=== PATIENT | male | born 1955 | race African-American/Black ===

== ENCOUNTER 2020-08-24 21:28 | Emergency (ER) | payer MEDICARE, SELFPAY ==
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
[2020-08-24 21:54] VITALS: BP 157/95; PULSE 94; RESP 16; TEMP 36.4; O2SAT 100
[2020-08-24 23:03] VITALS: BP 222/122; PULSE 79; RESP 18; TEMP 36.7; O2SAT 100
--- NOTE | 2020-08-24 23:27 | PC.NURSE ---
Pt refusing gown and lying in bed due to pain with movement. Pt in wheelchair at bedside. Pt has elevated blood pressure after manual auscultation, ERP aware.
--- NOTE | 2020-08-24 23:44 | ED.BACK ---
HPI - Back Pain/Injury General Chief Complaint: Back Pain/Injury Stated Complaint: low back pain, flank pain Time Seen by Provider: 08/24/20 23:23 Source: patient Mode of arrival: ambulatory Limitations: no limitations History of Present Illness HPI Narrative: Patient is a 65-year-old male complaining of left lower back pain, dull, 10 out of 10, nonradiating, worse with movement, started 2 days ago. Patient states that he has a history of back pain but it is never this worse. Patient denies any weakness, numbness, incontinence, fever or chills. Patient denies any urinary symptoms. Patient denies any chest pain, shortness of breath or abdominal pain. MD elicited complaint: back pain Related Data Home Medications Medication Instructions Recorded Confirmed amlodipine 10 mg PO DAILY 01/21/19 atorvastatin 40 mg PO DAILY 01/21/19 insulin glargine [Basaglar KwikPen 44 unit SUBCUT HS 01/21/19 U-100 Insulin] lisinopril 40 mg PO DAILY 01/21/19 metformin 1,000 mg PO BID 01/21/19 Allergies Allergy/AdvReac Type Severity Reaction Status Date / Time shrimp Allergy Rash Verified 08/24/20 23:15 Review of Systems Review of Systems: All systems reviewed & are unremarkable except as noted in HPI and below Constitutional: Constitutional: Denies body ache(s), Denies chills, Denies excessive sweating, Denies fatigue, Denies fever(s), Denies headache(s), Denies lethargy, Denies malaise, Denies weakness and Denies weight loss Eyes: Eyes: Denies blurry vision, Denies change in vision and Denies loss of vision ENT: Denies dizziness, Denies ear discharge, Denies headache(s), Denies lip swelling, Denies epistaxis, Denies nasal congestion, Denies neck pain, Denies throat swelling and Denies tongue swelling Cardiovascular: Cardiovascular: Denies chest pain, Denies chest pain at rest, Denies chest pain with activity, Denies diaphoresis, Denies rapid heart rate, Denies edema, Denies irregular heart rhythm, Denies lightheadedness, Denies palpitations, Denies dyspnea and Denies dyspnea on exertion Respiratory: Respiratory: Denies chest congestion, Denies cough, Denies hemoptysis, Denies dyspnea and Denies dyspnea on exertion Gastrointestinal: Gastrointestinal: Denies abdominal pain, Denies melena, Denies hematochezia, Denies diarrhea, Denies nausea, Denies vomiting and Denies hematemesis Musculoskeletal: Musculoskeletal: Denies abnormal gait, Denies deformity, Denies joint swelling, Denies limited range of motion, Denies neck pain and Denies numbness Neurologic: Denies Abnormal speech present, Denies abnormal gait, Denies confusion, Denies dizziness, Denies headache(s), Denies focal weakness, Denies loss of vision, Denies numbness, Denies Other visual disturbances, Denies Sensory deficit (Neuro) and Denies weakness Psychiatric: Psychiatric: Denies confusion, Denies depression, Denies auditory hallucinations, Denies homicidal ideation and Denies suicidal ideation Endocrine: Endocrine: Denies cold intolerance, Denies excessive sweating, Denies fatigue, Denies heat intolerance and Denies palpitations Hematologic/Lymphatic: Hematologic/Lymphatic: Denies easy bleeding and Denies easy bruising Allergic/Immunologic: Allergic/Immunologic: Denies lip swelling, Denies throat swelling and Denies tongue swelling PMFSH Past Medical History Medical History DM (diabetes mellitus) Hypercholesteremia Hypertension Surgical History Surgical History History of cholecystectomy History of tonsillectomy Social History Social History Smoking status: Current every day smoker Gender identity (if verbalized by the patient): Male Exam Const: General: cooperative, healthy appearing, comfortable, no acute distress, well developed, alert and awake; No confusion Orientation/consciousness: orient
[2020-08-24 23:57] LABS: Basophils Percent Auto 0.2 % (0.2-1.2); Eosinophils Absolute Auto 0.3 K/mm3 (0-0.3); Eosinophils Percent Auto 3.6 % (0-4.4); Hematocrit 42.4 % (42.0-52.0); Immature Granulocyte Absolute 0.03 K/mm3 (0.00-0.031); Immature Granulocyte Percent A 0.3 % (0-0.5); Lymphocytes Absolute Auto 2.57 K/mm3 (0.9-3.2); Lymphocytes Percent Auto 29.1 % (18.3-44.2); Mean Corpuscular Hemoglobin 29.9 pg (26-34); Mean Corpuscular Volume 90.4 fl (80-100); Mean Platelet Volume 9.4 fl (7.4-10.4); Monocytes Absolute Auto 0.5 K/mm3 (0.1-0.6); Neutrophils Absolute Auto 5.4 K/mm3 (1.3-6.7); Neutrophils Percent Auto 60.8 % (45.5-73.1); Platelet Count Result 272 k/mm3 (150-375); Red Blood Count 4.69 M/mm3 (4.6-6.20); Red Cell Distribution Width 12.6 % (11.5-14.5); White Blood Count 8.8 K/mm3 (4.5-10.0)
[2020-08-25] MEDS: diazePAM INJ (*CRX) 10 MG/2 ML SYRINGE 5 MG IV PUSH (00:04)
[2020-08-25 00:06] LABS: Alanine Aminotransferase 22 U/L (4-50); Alkaline Phosphatase 105 U/L (38-126); Anion Gap 7 mmol/L (8-16); Aspartate Amino Transferase 29 U/L (17-59); Bilirubin,Total 0.5 mg/dL (0.2-1.3); Blood Urea Nitrogen 18 mg/dL (9-20); Calcium 9.2 mg/dL (8.4-10.2); Carbon Dioxide 28 mmol/L (22-30); Chloride 108 mmol/L (98-107); Estimated CRCL calculation 51 ml/min; Estimated Glomerular Filt Rate 57; Glucose 192 mg/dL (75-110); Lipase 798 U/L (23-300); Potassium 4.1 mmol/L (3.4-5.0); Sodium 143 mmol/L (137-145)
--- NOTE | 2020-08-25 00:12 | PC.NURSE ---
Pt to imaging at this time.
[2020-08-25 00:38] VITALS: BP 193/98; PULSE 82; RESP 16; O2SAT 98
--- NOTE | 2020-08-25 01:36 | PC.NURSE ---
Pt requesting pain medication, ERP aware.
[2020-08-25] MEDS: KETOROLAC 15 MG/ML VIAL (*BKC) IV PUSH (02:13)
[2020-08-25] MEDS: HYDROmorphone HCL INJ (*CRX) 1 MG/ML SYR 0.5 MG IV PUSH ×2 (02:16)
[2020-08-25 02:25] VITALS: BP 208/101; PULSE 85; RESP 16; O2SAT 99
== END 2020-08-25 02:30 | disposition home or self-care (01) ==
PROVIDERS: Emergency Provider Emergency Medicine
DX: M54.5 Low back pain (principal); Z79.4 Long term (current) use of insulin; E11.9 Type 2 diabetes mellitus without complications; E78.00 Pure hypercholesterolemia, unspecified; I10 Essential (primary) hypertension; F17.200 Nicotine dependence, unspecified, uncomplicated
CPT/HCPCS: 36415; 74176; 80053; 83690; 85025; 96374; 96375; 96376; 99284; J1100; J1170; J1885; J3360

== ENCOUNTER 2020-10-11 08:50 | Outpatient (CLI) | payer MEDICARE, SELFPAY ==
--- NOTE | ~2020-10-11 | US_ITS ---
EXAMINATION: US aorta [facility] DATE: 10/11/2020 09:46 INDICATION: Abdominal aortic aneurysm screening. TECHNIQUE: Grayscale, color Doppler, and pulsed Doppler images of the aorta and common iliac arteries were obtained. COMPARISON: CT abdomen and pelvis 08/25/2020 FINDINGS: The aorta is normal in caliber. The right common iliac artery is normal in caliber. The left common i liac artery is normal in caliber. IMPRESSION: 1. No abdominal aortic aneurysm. Reviewed, dictated and finalized at location A.
== END 2020-10-11 08:51 | disposition home or self-care (01) ==
DX: Z13.6 Encounter for screening for cardiovascular disorders (principal)
CPT/HCPCS: 76706

== ENCOUNTER 2022-01-06 08:04 | Outpatient (CLI) | payer MEDICARE, SELFPAY ==
[2022-01-06 19:36] LABS: Alanine Aminotransferase 23 U/L (6-50); Albumin Level 4.1 g/dL (3.5-5.1); Alkaline Phosphatase 93 U/L (38-126); Anion Gap 12 mmol/L (8-16); Aspartate Amino Transferase 29 U/L (17-59); Bilirubin,Total 0.3 mg/dL (0.2-1.3); Blood Urea Nitrogen 36 mg/dL (9-20); Calcium 8.3 mg/dL (8.4-10.2); Carbon Dioxide 22 mmol/L (22-30); Chloride 110 mmol/L (98-107); Cholesterol 159 mg/dL (0-200); Estimated Glomerular Filt Rate > 60; Glucose 139 mg/dL (65-110); HDL Direct 40 mg/dL; Potassium 4.5 mmol/L (3.4-5.0); Sodium 144 mmol/L (137-145); Triglycerides 65 mg/dL (<150)
[2022-01-06 19:42] LABS: LDL Cholesterol Direct 81 mg/dL
[2022-01-06 19:57] LABS: Creatinine Urine 92.5 mg/dL
[2022-01-06 20:18] LABS: Hemoglobin A1C 7.1 % (<5.7)
[2022-01-06 20:39] LABS: MALB Creatinine Ratio 611.8 mg/g (0-30); Microalbumin Urine Random 565.9 mg/L (0-16.7)
== END 2022-01-06 08:05 | disposition home or self-care (01) ==
LOC: ANHGOSHLAB 08:13
PROVIDERS: PCP Emergency Medicine; Visit Provider Emergency Medicine
DX: E11.9 Type 2 diabetes mellitus without complications (principal)
CPT/HCPCS: 36415; 80053; 80061; 82043; 83036; 84443

== ENCOUNTER 2022-05-16 09:00 | Outpatient (NON) | payer MEDICARE, SELFPAY | END 2022-05-16 09:01 | disposition home or self-care (01) | PROVIDERS: PCP Emergency Medicine; Visit Provider Internal Medicine Gastroenterology | DX: Z12.11 Encounter for screening for malignant neoplasm of colon (principal); K63.5 Polyp of colon | CPT/HCPCS: 88305 ==

== ENCOUNTER 2022-05-16 11:12 | Day surgery (SDC) | payer MEDICARE, SELFPAY ==
[2022-04-27 11:46] VITALS: BMI 35.4
[2022-05-02 14:13] VITALS: BMI 30.7
[2022-05-16 11:45] VITALS: BP 157/101; PULSE 92; RESP 20; TEMP 36.7; O2SAT 100
[2022-05-16] MEDS: LACTATED RINGERS 1,000 ML 30 ML IV CONT (12:20)
[2022-05-16 12:32] LABS: Glucose Point of Care 200 mg/dl (65-105)
--- NOTE | 2022-05-16 12:40 | P.PNAN_ITS ---
Anes - Initial Pre Proc Eval Procedure: Operation Date: 05/16/22 13:00 Proposed Procedures p Screening Colonoscopy - [place] MD Date/Time: 05/16/22 12:40 Surgeon: Lenin [place] MD Pre Op Diagnosis: Neoplasm Screening Patient Data Age: 67 Gender: M Height: 1.71 m Weight: 104.2 kg Allergies Allergy/AdvReac Type Severity Reaction Status Date / Time shrimp Allergy Rash Verified 05/16/22 12:32 Home Medications Medication Instructions Recorded Confirmed Type amlodipine 10 mg tablet 10 mg PO DAILY 01/21/19 05/16/22 History metformin 750 mg tablet,extended 1,500 mg PO DAILY #180 tabs 02/09/22 05/16/22 Rx release 24 hr lisinopril 20 2 tablet PO DAILY #180 tabs 04/03/22 05/16/22 Rx mg-hydrochlorothiazide 12.5 mg tablet sodium,potassium,mag sulfates 17.5 See Rx Instructions PO .COMPLEX 04/27/22 05/16/22 Rx gram-3.13 gram-1.6 gram oral soln #354 mL (Suprep Bowel Prep Kit) Laboratory Tests 05/16/22 12:20 POC Capillary Glucose 200 mg/dl H mg/dl (65-105) Patient hx anesthesia problems: none Family hx anesthesia problems: none Results Review: All pre-operative results and documents have been reviewed as part of the pre- operative evaluation. [facility] Past Medical History Medical History DM (diabetes mellitus) Hypercholesteremia Hypertension Surgical History Surgical History History of cholecystectomy History of tonsillectomy Social History Social History Social History: Caffeine-coffee Smoking packs per day: 0.5 Smoking cigarettes per day: 10.0 Years smoked: 42 Smoking pack-years: 21.00 Smoking status: Current every day smoker Tobacco type: cigarettes Alcohol intake: current Alcohol use details: rarely Substance use: never Substance use type: does not use Living arrangements: with family Gender identity (if verbalized by the patient): Male Spiritual care concerns: No Anes - Eval Final PreProcedure Day of Procedure 05/16/22 12:40 Patient weight: obese Heart: regular rate and rhythm Lungs: clear to auscultation Airway: Mallampati scale class II Neurological: alert and oriented Last oral intake: >/= 8 hours ASA classification: III Emergent: no Anesthetic plan: proceed Anesthesia type and monitoring: general GIVS and standard monitoring Results Review: All pre-operative results and documents have been reviewed as part of the pre- operative evaluation. Informed Consent: The patient's anesthetic plan and its attendant risks and benefits were discussed with the patient/family/POA. Questions were solicited and answers provided to the satisfaction of the patient/family/POA.
--- NOTE | 2022-05-16 13:40 | P.HP_ITS ---
History of Present Illness History of Present Illness Consent: Risks, benefits, and alternatives have been discussed and questions answered. Patient agrees to proceed with procedure. Chief complaint: Neoplasm Screening Narrative: Chente Bassett is a 67 year old male Presents for screening colonoscopy. Patient's current weight appetite and bowel movements are normal. Patient denies abdominal pain. He has had no bleeding. Family history noncontributory. Review of Systems Review of Systems: Review of systems noncontributory. [facility] Past Medical History Medical History DM (diabetes mellitus) Hypercholesteremia Hypertension Surgical History Surgical History History of cholecystectomy History of tonsillectomy Social History Social History Social History: Caffeine-coffee Smoking packs per day: 0.5 Smoking cigarettes per day: 10.0 Years smoked: 42 Smoking pack-years: 21.00 Smoking status: Current every day smoker Tobacco type: cigarettes Alcohol intake: current Alcohol use details: rarely Substance use: never Substance use type: does not use Living arrangements: with family Gender identity (if verbalized by the patient): Male Spiritual care concerns: No Meds Home Medications and Allergies Home Medications Medication Instructions Recorded Confirmed Type amlodipine 10 mg tablet 10 mg PO DAILY 01/21/19 05/16/22 History metformin 750 mg tablet,extended 1,500 mg PO DAILY #180 tabs 02/09/22 05/16/22 Rx release 24 hr lisinopril 20 2 tablet PO DAILY #180 tabs 04/03/22 05/16/22 Rx mg-hydrochlorothiazide 12.5 mg tablet sodium,potassium,mag sulfates 17.5 See Rx Instructions PO .COMPLEX 04/27/22 05/16/22 Rx gram-3.13 gram-1.6 gram oral soln #354 mL (Suprep Bowel Prep Kit) Allergies Allergy/AdvReac Type Severity Reaction Status Date / Time shrimp Allergy Rash Verified 05/16/22 12:32 Vital Signs Vital Signs - 24 hr 05/16/22 11:45 Temperature 98.1 F Pulse Rate 92 Respiratory Rate 20 Blood Pressure 157/101 H Pulse Oximetry 100 Oxygen Delivery Room Air Exam Narrative: Physical exam reveals patient to be alert. Vital signs stable. HEENT exam is unremarkable. Patient is anicteric. Lungs are clear to auscultation and percussion. Heart is without murmur or extra sounds. Abdomen bowel sounds are present soft nontender with no organomegaly. Digital external rectal exam is normal. Assessment and Plan Assessment and plan (1) Encounter for screening colonoscopy: Code(s): Z12.11 - Encounter for screening for malignant neoplasm of colon Status: Acute Assessment and Plan: Patient presents today for screening colonoscopy. Appears to be at average risk for colon polyps. Further recommendations may be given after endoscopy.
[2022-05-16 14:29] VITALS: BP 124/80; PULSE 91; RESP 20; O2SAT 100
[2022-05-16 14:39] VITALS: BP 163/102; PULSE 82; RESP 20; O2SAT 100
--- NOTE | 2022-05-16 14:41 | WPDANESPN ---
Anes - Prog Note Post-Op Date/Time: 05/16/22 14:41 Cardiovascular status: normal Respiratory status: normal Airway patency: baseline Mental status: baseline Post-Op hydration status: normal Vital Signs: Last Vital Signs Temp 36.7 C 05/16/22 11:45 Pulse 92 05/16/22 11:45 Resp 20 05/16/22 11:45 BP 157/101 H 05/16/22 11:45 Pulse Ox 100 05/16/22 11:45 O2 Del Method Room Air 05/16/22 11:45 Pain Score (VAS): 0/10 I/O: Intake & Output 05/15/22 05/16/22 05/16/22 23:59 07:59 15:59 Intake Total 400 Balance 400 05/16/22 12:20 POC Capillary Glucose 200 H Patient Feedback: Patient satisfied with anesthetic care.
[2022-05-16 14:49] VITALS: BP 156/96; PULSE 81; RESP 20; O2SAT 100
== END 2022-05-16 14:55 | disposition home or self-care (01) ==
PROVIDERS: PCP Emergency Medicine; Visit Provider Internal Medicine Gastroenterology
PROC: 0DJD8ZZ Inspection of Lower Intestinal Tract, Via Natural or Artificial Opening Endoscopic (ICD-10-PCS; CPT 45378; principal; 2022-05-16 13:00)
DX: Z12.11 Encounter for screening for malignant neoplasm of colon (principal)
CPT/HCPCS: 45385

== ENCOUNTER 2022-06-28 10:41 | Outpatient (CLI) | payer MEDICARE, SELFPAY ==
[2022-06-28 20:22] LABS: Alanine Aminotransferase 64 U/L (6-50); Albumin Level 4.1 g/dL (3.5-5.1); Alkaline Phosphatase 156 U/L (38-126); Anion Gap 6 mmol/L (8-16); Aspartate Amino Transferase 44 U/L (17-59); Bilirubin,Total 0.7 mg/dL (0.2-1.3); Blood Urea Nitrogen 46 mg/dL (9-20); Calcium 8.6 mg/dL (8.4-10.2); Carbon Dioxide 30 mmol/L (22-30); Chloride 100 mmol/L (98-107); Cholesterol 185 mg/dL (0-200); Estimated Glomerular Filt Rate 43; Glucose 384 mg/dL (65-110); HDL Direct 33 mg/dL; Potassium 4.5 mmol/L (3.4-5.0); Sodium 136 mmol/L (137-145); Triglycerides 185 mg/dL (<150)
[2022-06-28 20:33] LABS: LDL Cholesterol Direct 103 mg/dL
[2022-06-28 20:51] LABS: Prostate Specific Antigen 0.6 ng/mL (< OR = 4.0)
== END 2022-06-28 10:42 | disposition home or self-care (01) ==
LOC: ANHGOSHLAB 10:44
PROVIDERS: PCP Emergency Medicine; Visit Provider Emergency Medicine
DX: E11.22 Type 2 diabetes mellitus with diabetic chronic kidney disease (principal); N18.2 Chronic kidney disease, stage 2 (mild); I12.9 Hypertensive chronic kidney disease with stage 1 through stage 4 chronic kidney disease, or unspecified chronic kidney disease; Z12.5 Encounter for screening for malignant neoplasm of prostate
CPT/HCPCS: 36415; 80053; 80061; 83036; 84153; G0103

== ENCOUNTER 2022-06-29 10:20 | Outpatient (CLI) | payer MEDICARE, OTHER, SELFPAY ==
--- NOTE | ~2022-06-29 | XR_ITS ---
AP view of the pelvis and AP and lateral views of the left hip Clinical history: Pain Findings: No acute fracture or dislocation is seen. Osseous alignment is anatomic. Mild degenerative change of both hip joints noted. Soft tissues are unremarkable. Impression: Mild degenerative change of both hip joints. Reviewed, dictated and finalized at location . Impression: Mild degenerative change of both hip joints.
== END 2022-06-29 10:21 ==
PROVIDERS: PCP Emergency Medicine; Visit Provider Nurse Practitioner Family
DX: M25.552 Pain in left hip (principal)
CPT/HCPCS: 73502

== ENCOUNTER 2022-09-28 09:43 | Outpatient (CLI) | payer MEDICARE, SELFPAY ==
[2022-09-28 13:01] LABS: Basophils Percent Auto 0.2 % (0.2-1.2); Eosinophils Absolute Auto 0.3 K/mm3 (0-0.3); Eosinophils Percent Auto 3.3 % (0-4.4); Hematocrit 38.7 % (42.0-52.0); Hemoglobin 12.5 g/dL (14.0-18.0); Immature Granulocyte Absolute 0.02 K/mm3 (0.00-0.031); Immature Granulocyte Percent A 0.2 % (0-0.5); Lymphocytes Absolute Auto 2.47 K/mm3 (0.9-3.2); Lymphocytes Percent Auto 28.8 % (18.3-44.2); Mean Corpuscular HGB Conc 32.3 g/dl (32-36); Mean Corpuscular Hemoglobin 29.6 pg (26-34); Mean Corpuscular Volume 91.7 fl (80-100); Mean Platelet Volume 9.8 fl (7.4-10.4); Monocytes Absolute Auto 0.4 K/mm3 (0.1-0.6); Monocytes Percent Auto 4.8 % (2.6-8.5); Neutrophils Absolute Auto 5.4 K/mm3 (1.3-6.7); Neutrophils Percent Auto 62.7 % (45.5-73.1); Platelet Count Result 278 k/mm3 (150-375); Red Blood Count 4.22 M/mm3 (4.6-6.20); Red Cell Distribution Width 12.7 % (11.5-14.5); White Blood Count 8.6 K/mm3 (4.5-10.0)
[2022-09-28 13:43] LABS: Anion Gap 8 mmol/L (8-16); Blood Urea Nitrogen 39 mg/dL (9-20); Calcium 8.9 mg/dL (8.4-10.2); Carbon Dioxide 27 mmol/L (22-30); Chloride 106 mmol/L (98-107); Estimated Glomerular Filt Rate 53; Glucose 234 mg/dL (65-110); Phosphorus 3.9 mg/dL (2.5-4.5); Potassium 4.8 mmol/L (3.4-5.0); Sodium 141 mmol/L (137-145)
[2022-09-28 14:15] LABS: Hemoglobin A1C 10.8 % (<5.7)
== END 2022-09-28 09:44 | disposition home or self-care (01) ==
LOC: ANHGOSHLAB 09:45
PROVIDERS: Nurse Practitioner Family; PCP Emergency Medicine; Visit Provider Emergency Medicine
DX: E11.9 Type 2 diabetes mellitus without complications (principal); N18.30 Chronic kidney disease, stage 3 unspecified
CPT/HCPCS: 36415; 80069; 83036; 85025

== ENCOUNTER 2022-10-03 10:17 | Outpatient (RCR) | payer MEDICARE, SELFPAY ==
--- NOTE | 2022-10-03 11:54 | PTOPEVAL1 ---
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 He states he can tolerate doing daily chores but as soon as he's done the pain will start to set in . He states he has gone to therapy in the past without much relief. He reports low back with L hip pain. Pt states at worst his pain is 10/10 but is relieved with Tylenol arthritis. Reported Pain Level Pain Score 5: Self Report Assessment PT Clinical Summary Chente presents to therapy today for his initial evaluation with a diagnosis of low back pain. Today he demonstrates decreased lumbar ROM in all directions, decreased L hip motion limited by back pain, and tenderness to palpation throughout his L side in the lumbar and hip region. He will benefit from skilled services to treat HEP, for pain management, and to return to PLOF. Pt states he would like to try the exercises on his own and follow up if needed in about a month. Plan of Care Interventions Electrical Stimulation,Gait Training,Hot Pack/Cold Pack,Manual Therapy,Neuro Re-education,Patient/ Caregiver Educati,Therapeutic Activities, Therapeutic Exercise PT Services Indicated Yes Treatment Frequency and follow up in one month if needed Duration These treatments will address the objective and functional deficits as defined above. The patient will be advanced safely and appropriately in order for the patient to progress towards his/her prior level of function. Additional exercises will be introduced and as well as a comprehensive home exercise program upon discharge, if needed, ?to ensure carryover of functional gains achieved in the clinic. This treatment plan has been reviewed and agreement upon by the patient.
--- NOTE | 2022-11-16 15:30 | PTOPEVAL1 ---
Assessment and note entered by Meghana España, PT, DPT Evaluation Information Assessment Status Discharge - Pt Not Present Diagnosis low back pain Onset chronic Subjective Information Pt called today and states he would like to be discharged at this time. Per report pt was upset we did not put hot towels on him. Assessment PT Clinical Summary Pt was evaluated on 10/03/22 and at that time elected to participate in a HEP vs formal therapy visits. Per request he will be discharged at this time. These treatments will address the objective and functional deficits as defined above. The patient will be advanced safely and appropriately in order for the patient to progress towards his/her prior level of function. Additional exercises will be introduced and as well as a comprehensive home exercise program upon discharge, if needed, ?to ensure carryover of functional gains achieved in the clinic. This treatment plan has been reviewed and agreement upon by the patient.
== END 2022-11-16 16:10 | disposition home or self-care (01) ==
LOC: ANHGOSHPT 10:17
PROVIDERS: PCP Emergency Medicine; Visit Provider Emergency Medicine
DX: M54.50 Low back pain, unspecified (principal); G89.29 Other chronic pain
CPT/HCPCS: 97110; 97140; 97161

== ENCOUNTER 2023-05-03 11:22 | Outpatient (CLI) | payer MEDICARE, SELFPAY ==
[2023-05-03 16:02] LABS: Alanine Aminotransferase 18 U/L (6-50); Albumin Level 4.1 g/dL (3.5-5.1); Alkaline Phosphatase 116 U/L (38-126); Anion Gap 5 mmol/L (8-16); Aspartate Amino Transferase 37 U/L (17-59); Bilirubin,Total 0.6 mg/dL (0.2-1.3); Blood Urea Nitrogen 40 mg/dL (9-20); Calcium 9.3 mg/dL (8.4-10.2); Carbon Dioxide 28 mmol/L (22-30); Chloride 103 mmol/L (98-107); Cholesterol 170 mg/dL (0-200); Estimated Glomerular Filt Rate 49; Glucose 359 mg/dL (65-110); HDL Direct 38 mg/dL; Potassium 5.3 mmol/L (3.4-5.0); Sodium 136 mmol/L (137-145); Triglycerides 82 mg/dL (<150)
[2023-05-03 16:13] LABS: LDL Cholesterol Direct 112 mg/dL
[2023-05-03 16:14] LABS: Parathyroid Intact 133.2 pg/mL (7.5-53.5)
[2023-05-03 16:19] LABS: Basophils Percent Auto 0.4 % (0.2-1.2); Eosinophils Absolute Auto 0.2 K/mm3 (0-0.3); Eosinophils Percent Auto 2.9 % (0-4.4); Hematocrit 40.4 % (42.0-52.0); Hemoglobin 12.8 g/dL (14.0-18.0); Immature Granulocyte Absolute 0.02 K/mm3 (0.00-0.031); Immature Granulocyte Percent A 0.3 % (0-0.5); Lymphocytes Absolute Auto 2.29 K/mm3 (0.9-3.2); Lymphocytes Percent Auto 29.9 % (18.3-44.2); Mean Corpuscular HGB Conc 31.7 g/dl (32-36); Mean Corpuscular Hemoglobin 29.3 pg (26-34); Mean Corpuscular Volume 92.4 fl (80-100); Mean Platelet Volume 10.6 fl (7.4-10.4); Monocytes Absolute Auto 0.3 K/mm3 (0.1-0.6); Monocytes Percent Auto 3.9 % (2.6-8.5); Neutrophils Absolute Auto 4.8 K/mm3 (1.3-6.7); Neutrophils Percent Auto 62.6 % (45.5-73.1); Platelet Count Result 281 k/mm3 (150-375); Red Blood Count 4.37 M/mm3 (4.6-6.20); Red Cell Distribution Width 12.7 % (11.5-14.5); White Blood Count 7.7 K/mm3 (4.5-10.0)
[2023-05-03 16:29] LABS: Prostate Specific Antigen 0.9 ng/mL (< OR = 4.0)
[2023-05-03 17:15] LABS: Hemoglobin A1C > 14.0 % (<5.7)
[2023-05-05 20:37] LABS: Ionized Calcium 4.8 mg/dL (4.7-5.5)
== END 2023-05-03 11:23 | disposition home or self-care (01) ==
LOC: ANHGOSHLAB 11:23
PROVIDERS: PCP Emergency Medicine; Visit Provider Emergency Medicine
DX: Z12.5 Encounter for screening for malignant neoplasm of prostate (principal); E11.21 Type 2 diabetes mellitus with diabetic nephropathy; N18.30 Chronic kidney disease, stage 3 unspecified
CPT/HCPCS: 36415; 80053; 80061; 82330; 83036; 83970; 84153; 85025; G0103

== ENCOUNTER 2023-06-14 10:07 | Outpatient (CLI) | payer MEDICARE, SELFPAY ==
--- NOTE | ~2023-06-14 | US_ITS ---
Renal-Bladder ultrasound Clinical History: Chronic kidney disease Technique: Real-time sonographic imaging of the kidneys and urinary bladder was performed. Findings: The right kidney measures 10.5 cm in length and the left kidney measures 11.1 cm. There is no hydronephrosis or renal calculus identified. Renal cortical echogenicity is within normal limits. No renal mass lesion is identified. The urinary bladder is moderately distended at the time of this exam. No intraluminal echoes are iden tified. No abnormal wall thickening is seen. Impression: Unremarkable ultrasound of the kidneys and urinary bladder. Reviewed, dictated and finalized at location M. Impression: Unremarkable ultrasound of the kidneys and urinary bladder.
== END 2023-06-14 10:08 ==
LOC: MICIMG 10:08
PROVIDERS: PCP Emergency Medicine; Visit Provider Internal Medicine Nephrology
DX: E11.22 Type 2 diabetes mellitus with diabetic chronic kidney disease (principal); I12.9 Hypertensive chronic kidney disease with stage 1 through stage 4 chronic kidney disease, or unspecified chronic kidney disease; N18.31 Chronic kidney disease, stage 3a
CPT/HCPCS: 76775

== ENCOUNTER 2023-06-27 14:30 | Outpatient (RCR) | payer MEDICARE, SELFPAY | END 2023-08-06 09:47 | disposition home or self-care (01) | LOC: ANHDMC 14:30 | PROVIDERS: PCP Emergency Medicine; Visit Provider Emergency Medicine | DX: E11.21 Type 2 diabetes mellitus with diabetic nephropathy (principal); N18.30 Chronic kidney disease, stage 3 unspecified; I63.9 Cerebral infarction, unspecified; Z71.89 Other specified counseling | CPT/HCPCS: G0108; G0109 ==

== ENCOUNTER 2023-08-02 09:54 | Outpatient (CLI) | payer MEDICARE, SELFPAY ==
[2023-08-02 13:18] LABS: Anion Gap 4 mmol/L (4-12); Blood Urea Nitrogen 39 mg/dL (9-20); Calcium 8.9 mg/dL (8.4-10.2); Carbon Dioxide 25 mmol/L (22-30); Chloride 113 mmol/L (98-107); Estimated Glomerular Filt Rate 43; Glucose 206 mg/dL (65-110); Phosphorus 3.4 mg/dL (2.5-4.5); Potassium 5.2 mmol/L (3.4-5.0); Sodium 142 mmol/L (137-145)
[2023-08-02 13:27] LABS: Creatinine Urine 117.2 mg/dL; Total Protein Urine Random 50 mg/dL; Ur Ttl Prot Creatinine Ratio 0.43 mg/mg (0-0.20)
[2023-08-02 13:28] LABS: Complement C3 140 mg/dL (88-165)
[2023-08-02 13:31] LABS: Alanine Aminotransferase 14 U/L (6-50); Alkaline Phosphatase 106 U/L (38-126); Anion Gap 6 mmol/L (4-12); Aspartate Amino Transferase 25 U/L (17-59); Bilirubin,Total 0.5 mg/dL (0.2-1.3); Blood Urea Nitrogen 39 mg/dL (9-20); Carbon Dioxide 24 mmol/L (22-30); Chloride 111 mmol/L (98-107); Estimated Glomerular Filt Rate 43; Glucose 206 mg/dL (65-110); Potassium 5.1 mmol/L (3.4-5.0); Sodium 141 mmol/L (137-145)
[2023-08-02 21:58] LABS: Hemoglobin A1C 8.3 % (<5.7)
[2023-08-03 12:58] LABS: Protein, Total 6.6 g/dL (6.1-8.1)
[2023-08-03 13:48] LABS: Creatinine, Random Urine 124 mg/dL (20-320); Total Protein/Creatinine Ratio 323 mg/g creat (25-148)
[2023-08-03 17:13] LABS: Albumin 3.5 g/dL (3.8-4.8); Alpha 1 Globulin 0.3 g/dL (0.2-0.3); Alpha 2 Globulin 0.9 g/dL (0.5-0.9); Beta 1 Globulin 0.4 g/dL (0.4-0.6); Gamma Globulin 1.1 g/dL (0.8-1.7)
[2023-08-04 13:59] LABS: Anti Glomerular Basement Memb <1.0 AI
[2023-08-05 01:43] LABS: ANCA Screen NEGATIVE (NEGATIVE)
== END 2023-08-02 09:55 | disposition home or self-care (01) ==
PROVIDERS: Internal Medicine Nephrology; PCP Emergency Medicine; Visit Provider Emergency Medicine
DX: I12.9 Hypertensive chronic kidney disease with stage 1 through stage 4 chronic kidney disease, or unspecified chronic kidney disease (principal); E11.40 Type 2 diabetes mellitus with diabetic neuropathy, unspecified; E11.22 Type 2 diabetes mellitus with diabetic chronic kidney disease; N18.31 Chronic kidney disease, stage 3a
CPT/HCPCS: 36415; 80053; 80069; 82570; 83036; 83520; 84155; 84156; 84165; 84166; 86036; 86038; 86039; 86160; 86225

== ENCOUNTER 2023-09-20 14:33 | Outpatient (RCR) | payer MEDICARE, SELFPAY | END 2023-09-20 17:19 | disposition home or self-care (01) | LOC: ANHDMC 14:33 | PROVIDERS: PCP Emergency Medicine; Visit Provider Emergency Medicine | DX: E11.21 Type 2 diabetes mellitus with diabetic nephropathy (principal); N18.30 Chronic kidney disease, stage 3 unspecified; I63.9 Cerebral infarction, unspecified | CPT/HCPCS: G0109 ==

== ENCOUNTER 2023-12-11 09:44 | Outpatient (CLI) | payer MEDICARE, SELFPAY ==
[2023-12-11 14:46] LABS: Parathyroid Intact 116.1 pg/mL (14.5-75.2)
[2023-12-11 14:51] LABS: Albumin Level 4.2 g/dL (3.5-5.1); Anion Gap 7 mmol/L (4-12); Blood Urea Nitrogen 42 mg/dL (9-20); Calcium 8.8 mg/dL (8.4-10.2); Carbon Dioxide 23 mmol/L (22-30); Chloride 111 mmol/L (98-107); Estimated Glomerular Filt Rate 43; Glucose 186 mg/dL (65-110); Phosphorus 3.6 mg/dL (2.5-4.5); Potassium 5.3 mmol/L (3.4-5.0); Sodium 141 mmol/L (137-145)
[2023-12-11 14:55] LABS: Creatinine Urine 107.6 mg/dL; Total Protein Urine Random 41 mg/dL; Ur Ttl Prot Creatinine Ratio 0.38 mg/mg (0-0.20)
[2023-12-11 15:24] LABS: Vitamin D 25 Hydroxy 53.1 ng/mL
== END 2023-12-11 09:45 | disposition home or self-care (01) ==
PROVIDERS: PCP Emergency Medicine; Visit Provider Internal Medicine Nephrology
DX: I12.9 Hypertensive chronic kidney disease with stage 1 through stage 4 chronic kidney disease, or unspecified chronic kidney disease (principal); E11.22 Type 2 diabetes mellitus with diabetic chronic kidney disease; N18.32 Chronic kidney disease, stage 3b; N25.81 Secondary hyperparathyroidism of renal origin; E55.9 Vitamin D deficiency, unspecified
CPT/HCPCS: 36415; 80069; 82306; 82570; 83970; 84156

== ENCOUNTER 2024-02-28 09:07 | Emergency (ER) | payer MEDICARE, SELFPAY ==
--- NOTE | ~2024-02-28 | XR_ITS ---
EXAMINATION: XR hip RT min 2V DATE: 02/28/2024 10:11 INDICATION: Right anterior hip pain TECHNIQUE: Anteroposterior and frog-leg lateral views of the right hip were obtained. COMPARISON: 06/29/2022 FINDINGS: Alignment is normal. No fracture or suspected osteonecrosis. Mild osteoarthritis at the right hip and bilateral sacroiliac joints. IMPRESSION: 1. Mild osteoarthritis at the right hip and bilateral sacroiliac joints. Reviewed, dictated and finalized at location B. T MACHINE OPERATOR
[2024-02-28 09:37] VITALS: BP 156/85; PULSE 93; RESP 16; TEMP 36.2; O2SAT 100
--- NOTE | 2024-02-28 09:53 | ED_ITS ---
HPI - Extremity Problem General Chief complaint: Extremity Injury, Lower Stated complaint: Hip Pain Time Seen by Provider: 02/28/24 09:50 Source: patient Mode of arrival: ambulatory Limitations: no limitations History of Present Illness HPI Narrative: Chente is a 69-year-old male patient presenting to clinic today with complaints of right sided hip pain. Reports symptoms started 2 days ago. No injury. Pain is only to the anterior hip. Pain with walking and having to flex the hip. Related Data Home Medications ?Medication ?Instructions ?Recorded ?Confirmed ?Last Taken ?Type amlodipine 10 mg tablet mg 02/28/24 Unknown History aspirin 81 mg chewable tablet 02/28/24 Unknown History Allergies Allergy/AdvReac Type Severity Reaction Status Date / Time shrimp Allergy Rash Verified 02/28/24 09:40 Review of Systems Review of Systems: Pertinent positives per HPI. Patient denies any fever, chills, rash, headache, visual changes, dizziness, cough, runny nose, sore throat, shortness of breath, chest pain, palpitations, nausea, vomiting, diarrhea, constipation, abdominal pain, or any urinary issues. [facility] Past Medical History Medical History DM (diabetes mellitus) Hypercholesteremia Hypertension Surgical History Surgical History History of cholecystectomy History of tonsillectomy Social History Social History Social History: Caffeine-coffee Smoking packs per day: 0.5 Smoking cigarettes per day: 10.0 Years smoked: 42 Smoking pack-years: 21.00 Smoking status: Current every day smoker Tobacco type: cigarettes Alcohol intake: current Alcohol use details: rarely Substance use: never Substance use type: does not use Do You Feel Safe in your Home?: Yes Lack of Transportation: No Lack of Food: Sometimes True Current Housing: I Do Not Have Housing Concerned About Future Housing: No Difficulty Paying Gas/Electric Bills: YES Difficulty Paying for Meds: No Currently Unemployed: YES Education: High School Diploma/GED Living arrangements: with family Gender identity (if verbalized by the patient): Male Spiritual care concerns: No Comments At the time of my signature, I reviewed and agree with the nursing past medical, surgical, social, and family history. There is no relevant family history pertinent to the patient complaint. Exam Narrative: General: Well-developed, well nourished, in no apparent distress Head: Normocephalic, atraumatic. Cardio: Regular rate and rhythm, s1 and s2 normal, no murmur appreciated. Resp: Clear to auscultation bilaterally, no rhonchi, rales, wheezing or rubs. Musculoskeletal: No deformity, no bruising or swelling to the right anterior hip, tender to palpation over the right hip flexor musculature, pain with hip f lexion against resistance, pain with internal and external rotation of the hip over the hip flexor, grossly normal range of motion, muscle strength strong and equal, peripheral pulse strong, no edema, no cyanosis, normal gait and station Course Course Emergency Course: Portions of this record may have been created with voice recognition software. Level of Care: Express Care Visit Vital Signs Vital signs: Vital Signs Temperature 36.2 C L 02/28/24 09:37 Pulse Rate 93 02/28/24 09:37 Respiratory Rate 16 02/28/24 09:37 Blood Pressure 156/85 H 02/28/24 09:37 Pulse Oximetry 100 02/28/24 09:37 Temperature 36.2 C L 02/28/24 09:37 Pulse Rate 93 02/28/24 09:37 Respiratory Rate 16 02/28/24 09:37 Blood Pressure 156/85 H 02/28/24 09:37 Pulse Oximetry 100 02/28/24 09:37 Vital signs reviewed MDM - Extremity (Nontraumatic) MDM Narrative Medical decision making narrative: At the time of visit patient is resting comfortably on the exam table. Patient appears to be nontoxic. Diagnostics: Right hip x-ray was performed and shows mild osteoarthritis and arthritis over the SI joints Plan: I suspect patient has osteoarthritis, or right hip flexor strain, acute hip pain. Prescription for naproxen and baclofen was sent to the pharmacy. Supportive measures were discussed with the patient and they voiced understanding discharge instructions and agrees to treatment plan. Return precautions reviewed Differential Diagnosis Differential diagnosis: Likely gout and other (Osteoarthritis, muscle strain, bursitis) Discharge Plan Discharge Clinical Impression: Strain of flexor muscle of right hip Qualifiers: Encounter type: initial encounter Qualified Code(s): S76.011A - Strain of muscle, fascia and tendon of right hip, initial encounter Acute hip pain Qualifiers: Laterality: right Qualified Code(s): M25.551 - Pain in right hip Osteoarthritis Qualifiers: Osteoarthritis location: hip Osteoarthritis type: unspecified Laterality: right Qualified Code(s): M16.11 - Unilateral primary osteoarthritis, right hip Patient Disposition: Home, Self-Care Condition: Stable Instructions: Antibiotic Form, Muscle Strain (ED), Osteoarthritis (ED), Hip Pain (ED) Additional Instructions: X-rays negative for any sign of fracture or malalignment. Does show mild osteoarthritis to the hip into the SI joints. Take any prescription medication only as prescribed-baclofen and naproxen Be mindful of sedation precautions given to you if taking a muscle relaxer. May use heat or ice to the affected area Consider massage or chiropractor adjustment if this was discussed with provider May use blue emu, lidocaine patches, or asper cream to affected area- do not apply heat or ice directly over cream- can cause burn. Follow up with your PCP in 3-5 days if symptom persist. May need referral to physical therapy if symptoms persist Patient Language: [place] Prescriptions: New baclofen 10 mg tablet 10 mg PO TID PRN (Reason: muscle spasm) 7 Days Qty: 21 0RF naproxen 500 mg tablet 500 mg PO BID PRN (Reason: pain) 7 Days Qty: 14 0RF No Action amlodipine 10 mg tablet aspirin 81 mg tablet,chewable sildenafil 25 mg tablet 25 mg PO DAILY PRN (Reason: sexual activity) Qty: 14 0RF Rx Instructions: administer 30 minutes to 4 hours before activity lisinopril-hydrochlorothiazide 20-12.5 mg tablet 2 tablet PO DAILY Qty: 180 3RF metformin 500 mg tablet extended release 24 hr 500 mg PO BID Qty: 180 3RF insulin glargine [Lantus Solostar U-100 Insulin] 100 unit/mL (3 mL) insulin pen 30 unit subcut QAM Qty: 15 3RF (DME) blood-glucose sensor Device See Rx Instructions .Route Qty: 1 0RF Rx Instructions: Check blood sugar 4 times daily (DME) Blood Glucose Test Strip See Rx Instructions .Route Qty: 50 3RF Rx Instructions: Check blood sugar 4 times daily (DME) lancets 32 gauge misc See Rx Instructions .Route Qty: 100 3RF Rx Instructions: Check blood sugar 4 times daily (DME) pen needle, diabetic [1st Tier Unifine Pentips] 32 gauge x 5/32 needle See Rx Instructions .Route Qty: 100 3RF Rx Instructions: Check blood sugar 4 times daily (DME) FreeStyle Ophelia 3 [place] Misc See Rx Instructions .Route Qty: 1 1RF Rx Instructions: As directed (DME) FreeStyle Ophelia 3 Plus Sensor Device See Rx Instructions .Route Qty: 6 1RF Rx Instructions: Use to check blood sugars atorvastatin [Lipitor] 20 mg tablet 20 mg PO QHS Qty: 90 1RF hydrocodone-acetaminophen 5-325 mg tablet 1 tablet PO Q8H PRN (Reason: pain) Qty: 90 0RF Follow-up/Referrals: Juan Pablo Deluna MD [Primary Care Provider] - Time of Disposition: 10:21 Quality NIHSS Nursing Documentation ED NIHSS nursing documentation: reviewed/agree
== END 2024-02-28 10:34 | disposition home or self-care (01) ==
PROVIDERS: Emergency Provider Nurse Practitioner Family; PCP Family Medicine
DX: S76.011A Strain of muscle, fascia and tendon of right hip, initial encounter (principal); M16.11 Unilateral primary osteoarthritis, right hip; Z79.82 Long term (current) use of aspirin; E11.9 Type 2 diabetes mellitus without complications; I10 Essential (primary) hypertension; E78.00 Pure hypercholesterolemia, unspecified; F17.210 Nicotine dependence, cigarettes, uncomplicated
CPT/HCPCS: 73502; 99213; G0463

== ENCOUNTER 2024-04-22 15:39 | Outpatient (CLI) | payer MEDICARE, SELFPAY ==
--- OUTSIDE RECORDS SUMMARY | 2024-04-22 15:43 | XMS_ITS | Encounter Summary ---
Author Organization [facility] Address [address] [place] [address] Care Team Providers Care Prescriptionist Name Role Phone Katey Clifton MD Primary Care Provider [phone] Katey Clifton MD Primary Care Provider [phone] Deion Metzger Primary Care Provider Unavailabl e Katey Clifton MD Unavailable [phone] Deion Metzger Unavailable Unavailable Reason for Visit * Reason Onset Date Comments Medication Issue 08/24/2020 Encounter Details Date Type Department Care Team (Late Contact Info) Description 08/24/2020 Telephone [facility] [address] [place], [place] [id number] Katey Clifton MD [address] [facility] [address] [place] [address] Medication Issue Social History Tobacco Use Types Packs/Day Years Used Date Smoking Tobacco: Former Cigarettes Q uit: 04/29/2015 Smokeless Tobacco: Never Alcohol Use Standard Drinks/Week Comments No 0 (1 standard drink = 0.6 oz pur e alcohol) Sex and Gender Information Value Date Recorded Sex Assigned at Not on file Gender Identity Not on file Sexual Orientation Not on file documented as of this encounter Miscellaneous Notes * Telephone Encounter - Jerzy Mott - 08/24/2020 11:52 AM CDT Spoke with patient's , no medication can be prescribed without being seen in the office. Patient is schedule for 08/31/2020 * Telephone Encounter - Leena Christianson - 08/24/2020 11:31 AM CDT Current Provider name: Dr. Katey Clifton Reason for call: Mr. Chente Bassett called in today re: a cough medicine he needs, there apparently was some mix up yesterday, it looks like message went to Dr. Aleman and he is a patient of Dr.Jane Clifton's. He gets a cough about this same time every year and Dr. Clifton orders a special cough medicine for him. [facility]'t [facility] a record of cough medicine, is there something you can prescribe for him. Mr. Bassett does have a 08/31/2020 appt. Please reach out to patient/patient's . Patient Call Back number: Ms. Cindy Alvarado [phone] documented in this encounter Plan of Treatment Not on file documented as of this encounter Visit Diagnoses Not on filedocumented in this encounter Additional Health Concerns Infection Onset Date Last Indicated Resolved Time COVID-19 Under Investigation 05/07/2023 05/08/2023 05/08/2023 7:51 AM PHP MYSQL WEB DEVELOPER documented as of this encounter Care Teams Prescriptionist Relationship Specialty Start Date End Date Katey Clifton MD [address] [facility] [place] [phone] PCP - General 05/30/22 05/06/23 Katey Clifton MD [address] [facility] [place] [address] PCP - General Family Medicine 05/07/23 05/09/23 Deion Metzger PCP - General 3/7/24 Katey Clifton MD [address] [address] 05/07/23 05/09/23 Deion Metzger 05/10/23 documented as of this encounter
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
--- OUTSIDE RECORDS SUMMARY | 2024-04-22 15:44 | XMS_ITS | Clinical Summary ---
Author Organization [facility] Address [address] [place] [address] Phone Care Team Providers Care Shank Burnisher Name Role Phone Katey Clifton MD Primary Care Provider [phone] Allergies No known active allergies Medications No known medications Active Problems No known active problems Social History Tobacco Use Types Packs/Day Years Used Date Smoking Tobacco: Never Assessed Sex and Gender Information Value Date Recorded Sex Assigned at Not on file Legal Sex Male 3:03 AM NURSE ASSESSOR Gender Identity Not on file Sexual Orientation Not on file Last Filed Vital Signs Vital Sign Reading Time Taken Comments Blood Pressure - - Pulse - - Temperature - - Respiratory Rate - - Oxygen Saturation - - Inhaled Oxygen Concentration - - Weight 113.4 kg (250 lb) 01/21/2015 10:46 AM NURSE ASSESSOR Height 171.5 cm (5' 7.5 ) 01/21/2015 10:46 AM CS T Body Mass Index 38.58 01/21/2015 10:46 AM NURSE ASSESSOR Plan of Treatment Health Maintenance Due Date Last Done Comments TdaP Immunization 1955 Colonoscopy 01/10/2000 Colorectal Cancer Screening 01/10/2000 Cologuard 2005 Immunochemical Fecal Occult Blood 2005 Pneumococcal Immunization (50+ years) (1 of 1 - PCV) 2005 Zoster Immunization (1 of 2) 2005 PSA Discussion 2010 Influenza Immunization (#1) 2023 SARS-COV-2 Immunization (2023-25 season) 2023 Respiratory Syncytial Virus (RSV) Immunization (Adult) (1 - 1-dose 75+ series) 2030 Hepatitis C Virus (HCV) Screening Completed 10/04/2016, 02/17/2015, 02/17/2015, Additional history exists Hepatitis B Immunization Aged Out No longer eligible based on patient's age to complete this topic Meningococcal Immunization (ACWY) Aged Out No longer eligible based on patient's age to complete this topic Rotavirus Immunization Aged Out No lo nger eligible based on patient's age to complete this topic Procedures Procedure Name Priority Date/Time Associated Diagnosis Comments HEPATITIS C RNA QUANT PCR VIRAL LOAD Routine 10/04/2016 8:42 AM CDT Hepatitis C virus infection without hepatic coma, unspecified chronicity from Last 3 Months or Most Recently Relevant to Health Maintenance Results * HEPATITIS C RNA QUANT PCR VIRAL LOAD (10/04/2016 8:42 AM CDT) HCV RNA QUANT PCR NON DETECTED NON DETECTED 10/06/2016 1:52 PM CDT [facility] HCV RNA QT LOG10 <=0.00 Log10 IU/mL 10/06/2016 1:52 PM CDT [facility] Comment: LOG 10 is not applicable. Sample held in Serology for 1 month. Call Laboratory if further testing is desired. This test was performed using YENIFER AmpliPrep YENIFER Taq Man Real Time PCR. Blood specimen (specimen) Venipuncture / Unknown 10/04/2016 8:42 AM CDT 10/04/2016 11:03 AM CDT us Vale Hoffman MD IMMUNOLOGY ORDERABLES Final Re sult [facility] [address] [place] [address], [place] from Last 3 Months or Most Recently Relevant to Health Maintenance Insurance MEDICAID [facility] Care Teams Shank Burnisher Relationship Specialty Start Date End Date Katey Clifton MD PCP - General Family Medicine 10/04/16
--- OUTSIDE RECORDS SUMMARY | 2024-04-22 15:44 | XMS_ITS | Patient Health Summary ---
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 INSPECTOR 05/07/2023 6:28 PM AXLE INSPECTOR Adarsh Kapoor MD LAB - BLOOD BANK ORD ERABLES Performing Organization Address [facility]/ZIP Co de Phone Number [facility] BLOOD BANK LAB [address] [place] [address], [place] [phone] * (ABNORMAL) CBC W AUTO DIFFERENTIAL (05/07/2023 5:41 PM AXLE INSPECTOR) Only the most recent of6 resultswithin the time period is included. [facility] WBC 6.2 4.0 - 10.7 x10E9/L 05/07/2023 5:59 PM [facility] RBC Count 4.16(L) 4.30 - 5.80 x10E12/L 05/07/2023 5:59 PM [facility] Hemoglobin 12.3(L) 13.3 - 17.5 g/dL 05/07/2023 5:59 PM [facility] Hematocrit 36.2(L) 38.7 - 51.1 % 05/07/2023 5:59 PM [facility] MCV 87.0 80.0 - 98.0 fL 05/07/2023 5:59 PM [facility] MCH 29.6 26.7 - 33.6 pg 05/07/2023 5:59 PM [facility] MCHC 34.0 31.7 - 36.3 g/dL 05/07/2023 5:59 PM [facility] RDW-CV 12.5 11.3 - 14.8 % 05/07/2023 5:59 PM [facility] Platelet Count 235 150 - 420 x10E9/L 05/07/2023 5:59 PM [facility] MPV 10.6 7.8 - 11.4 fL 05/07/2023 5:59 PM [facility] Neutrophil % 56.2 41.0 - 74.0 % 05/07/2023 5:59 PM [facility] Lymphocyte % 34.2 17.0 - 47.0 % 05/07/2023 5:59 PM [facility] Monocyte % 5.2 3.0 - 11.0 % 05/07/2023 5:59 PM [facility] Eosinophil % 3.7 0.0 - 7.0 % 05/07/2023 5:59 PM [facility] Basophil % 0.5 0.0 - 1.6 % 05/07/2023 5:59 PM [facility] Immature Granulocytes % 0.2 0.0 - 1.0 % 05/07/2023 5:59 PM [facility] Neutrophil Absolute 3.49 1.60 - 7.50 x10E9/L 05/07/2023 5:59 PM [facility] Lymphocyte Absolute 2.12 1.00 - 4.40 x10E9/L 05/07/2023 5:59 PM [facility] Monocyte Absolute 0.32 0.15 - 1.00 x10E9/L 05/07/2023 5:59 PM [facility] Eosinophil Absolute 0.23 0.00 - 0.60 x10E9/L 05/07/2023 5:59 PM [facility] Basophil Absolute 0.03 0.00 - 0.13 x10E9/L 05/07/2023 5:59 PM [facility] Blood BLOOD SPECIMEN / Unknown Venipuncture / Unknown 05/07/2023 5:41 PM AXLE INSPECTOR 05/07/2023 5:48 PM [facility] Adarsh Kapoor MD LAB - HEMATOLOGY ORD ERABLES Performing Organization Address [facility]/ZIP Co de Phone Number [facility] [address] [place] [address], [facility] [phone] * ALCOHOL ETHYL BLOOD (05/07/2023 5:41 PM AXLE INSPECTOR) Ethanol (mg/dL) <10 <10 mg/dL 6:19 PM AXLE INSPECTOR [facility] Ethanol Calculated (g/dL) <0.010 <=0.010 g/dL 05/07/2023 6:19 PM AXLE INSPECTOR [facility] Blood BLOOD SPECIMEN / Unknown Venipuncture / Unknown 05/07/2023 5:41 PM AXLE INSPECTOR 05/07/2023 5:47 PM AXLE INSPECTOR Narrative [facility] - 05/07/2023 6:19 PM AXLE INSPECTOR Ethanol Interp <10: None Detected. Depression of COMMUNITY EDUCATION COORDINATOR: >100 mg/dl Potentially Critical: >250 mg/dl Potentially Fatal >400 mg/dl Ethanol in the patient's blood will contribute to the osmolar gap. Ethanol's contribution to the osmolar gap can be estimated by dividing the concentration of ethanol in mg/dL by 4.6. This test is for clinical use only and does not equal a MIGUEL ANGEL for legal purposes. Adarsh Kapoor MD LAB - CHEMISTRY ORDE GRACIE Performing Organization Address [facility] Co de Phone Number [facility] [address] [place] [address], [facility] [phone] * CT ANGIO BRAIN NECK STROKE (05/07/2023 5:35 PM AXLE INSPECTOR) Anatomical Region Laterality Modality Head Computed Tomogra phy 05/07/2023 6:00 PM AXLE INSPECTOR Impressions 05/07/2023 6:26 PM AXLE INSPECTOR IMPRESSION: 1.No conspicuous flow within the right CHOCOLATE PACKER P2 and P3 segments with a hypoplastic right P1, 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 Otherwise, no occlusion, hemodynamically significant stenosis, or aneurysm of the major intracranial arteries. 2.No occlusion, hemodynamically significant stenosis, or dissection of the major neck arteries. Results of this exam were verbally discussed by Dr. Matias with Dr. Faustin on 05/07/2023 at 5:44 PM for a Critical Stroke Protocol with readback confirmation and verification. The images were reviewed by attending physician Dr. Danika Tijerina prior to this communication. > Interpreting Provider: Danika Tijerina MD, PhD on 05/07/2023 6:26 PM Narrative 05/07/2023 6:26 PM AXLE INSPECTOR EXAM: CT ANGIO BRAIN NECK STROKE, DATE/TIME OF EXAM: 05/07/2023 5:40 PM, LOCATION: [facility] HISTORY: R53.1: Weakness ADDITIONAL CLINICAL INFORMATION: Ordering Provider Reason For Exam: Right-sided weakness. NIH stroke scale of 10. EXAMINATION: CT angiogram images of the head and neck acquired with intravenous contrast. Multiplanar reformations acquired. TECHNIQUE: CT angiography of the head and neck was obtained after administration of intravenous contrast. Three dimensional postprocessing was performed by the technologist and sent to the workstation for review. NASCET criteria was utilized for evaluation of carotid stenosis. Additionally, Viz.AI was used for large vessel occlusion detection. CT dose reduction technique was used, including Automated Exposure Control. CONTRAST: IOPAMIDOL 76 % IV SOLN:80 mL COMPARISON: Head CT (stroke) 05/07/2023 at 5:24 PM. 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 Otherwise, no occlusion, hemodynamically significant stenosis, or aneurysm of the major intracranial arteries. Xbkc-hq-ougdekoi calcific atherosclerosis of the cavernous and clinoid segments of the internal carotid arteries (ICAs) resulting in multifocal stenoses in these regions without occlusion or hemodynamically significant stenosis. Focal mild calcific atherosclerosis of the inferior basilar artery and inferior left vertebral artery V4 segment without occlusion or hemodynamically significant stenosis. 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 CTA NECK: GREAT VESSELS: Visualized segments are patent. Mild calcific atherosclerosis of the aortic arch and proximal branches. RIGHT CCA/ICA: No occlusion. ICA at the carotid bifurcation with less than 50% stenosis by NASCET criteria secondary to calcific and noncalcific atherosclerosis. No evidence of dissection. LEFT CCA/ICA: No occlusion. ICA at the carotid bifurcation with less than 50% stenosis by NASCET criteria secondary to calcific and noncalcific atherosclerosis. No evidence of dissection. VERTEBRAL ARTERIES: No occlusion or hemodynamically significant stenosis. Mdzr-fx-kbeelkyw short segment stenosis of the left vertebral artery V1 segment secondary to calcific atherosclerosis. Mild short segment stenosis of the left vertebral artery V2 segment at the C4-C5 level secondary to a laterally directed osteophyte. No evidence of dissection. Dominant left vertebral artery. OTHER: Mild dependent subsegmental atelectasis of the lung apices. No neck mass or suspicious lymph nodes. No acute or suspicious osseous abnormality. Straightening of cervical spine lordotic curvature with overall moderate degenerative changes. 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 Procedure Note Danika Tijerina MD - 05/07/2023 EXAM: CT ANGIO BRAIN NECK STROKE, DATE/TIME OF EXAM: 05/07/2023 5:40 PM, LOCATION: [facility] HISTORY: R53.1: Weakness ADDITIONAL CLINICAL INFORMATION: Ordering Provider Reason For Exam: Right-sided weakness. NIH strokescale of 10. EXAMINATION: CT angiogram images of the head and neck acquired with intravenous contrast. Multiplanar reformations acquired. TECHNIQUE: CT angiography of the head and neck was obtained after administration of intravenous contrast. Three dimensional postprocessing was performed by the technologist and sent to the workstation forreview. NASCET criteria was utilized for evaluation of carotid stenosis. Additionally, Viz.AI was used for large vessel occlusion detection. CTdose reduction technique was used, including Automated Exposure Control. CONTRAST: IOPAMIDOL 76 % IV SOLN:80 mL COMPARISON: Head CT (stroke) 05/07/2023 at 5:24 PM. 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 Otherwise, no occlusion, hemodynamically significant stenosis, oraneurysm of the major intracranial arteries. Kwus-ul-znezietl calcific atherosclerosis of the cavernous and clinoid segments of the internal carotid arteries (ICAs) resulting in multifocal stenoses in these regions without occlusion or hemodynamicallysignificant stenosis. Focal mild calcific atherosclerosis of the inferior basilar artery and inferior left vertebral artery V4 segment without occlusionor hemodynamically significant stenosis. 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 CTA NECK: GREAT VESSELS: Visualized segments are patent. Mild calcific atherosclerosis of the aortic arch and proximal branches. RIGHT CCA/ICA: No occlusion. ICA at the carotid bifurcation with lessthan 50% stenosis by NASCET criteria secondary to calcific and noncalcific atherosclerosis. No evidence of dissection. LEFT CCA/ICA: No occlusion. ICA at the carotid bifurcation with lessthan 50% stenosis by NASCET criteria secondary to calcific and noncalcific atherosclerosis. No evidence of dissection. VERTEBRAL ARTERIES: No occlusion or hemodynamically significantstenosis. Atxh-vb-jcbqhlxh short segment stenosis of the left vertebral artery V1 segment secondary to calcific atherosclerosis. Mild short segmentstenosis of the left vertebral artery V2 segment at the C4-C5 level secondary toa laterally directed osteophyte. No evidence of dissection. Dominant left vertebral artery. OTHER: Mild dependent subsegmental atelectasis of the lung apices. Noneck mass or suspicious lymph nodes. No acute or suspicious osseousabnormality. Straightening of cervical spine lordotic curvature with overall moderate degenerative changes. Periodontal disease characterized by multiplemissing teeth and a few scattered dental caries of the remaining teeth. 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 Otherwise, no occlusion,hemodynamically significant stenosis, or aneurysm of the major intracranial arteries. 2.No occlusion, hemodynamically significant stenosis, or dissection ofthe major neck arteries. Results of this exam were verbally discussed by Dr. Matias with Dr. Ponce 05/07/2023 at 5:44 PM for a Critical Stroke Protocol with readback confirmation and verification. The images were reviewed by attending physician Dr. Danika Tijerina prior to this communication. > Interpreting Provider: Danika Tijerina MD, PhD on 05/07/2023 6:26 PM Aki Vivar MD CT ORDERABLES * CT BRAIN STROKE (05/07/2023 5:27 PM AXLE INSPECTOR) Anatomical Region Laterality Modality Head Computed Tomogra phy 05/07/2023 5:30 PM AXLE INSPECTOR Impressions 05/07/2023 6:00 PM AXLE INSPECTOR IMPRESSION: 1.No acute intracranial hemorrhage or large vascular territory infarct. 2.Right tympanomastoid effusion. Results of this exam were verbally discussed by Dr. Matias with Dr. Faustin on 05/07/2023 at 5:30 PM for a Critical Stroke Protocol with readback confirmation and verification. The images were reviewed by attending physician Dr. Danika Tijerina prior to this communication. I, Danika Tijerina MD, PhD have personally reviewed and interpreted this examination/study. > Interpreting Provider: Danika Tijerina MD, PhD on 05/07/2023 6:00 PM Narrative 05/07/2023 6:00 PM AXLE INSPECTOR EXAM: CT BRAIN STROKE, DATE/TIME OF EXAM: 05/07/2023 5:27 PM, LOCATION: [facility] HISTORY: R53.1: Weakness ADDITIONAL CLINICAL INFORMATION: Ordering Provider Reason For Exam: Right-sided weakness. NIH stroke scale of 10. EXAMINATION: CT scan of the head without intravenous contrast TECHNIQUE: CT of the head was performed without intravenous contrast according to standard protocol. CT dose reduction technique was used, including Automated Exposure Control. COMPARISON: No prior similar studies are available for comparison. FINDINGS: BRAIN PARENCHYMA: No acute hemorrhage, large vascular territory infarct, or mass effect. Scattered white matter hypodensities, which are nonspecific but likely represents the sequela of chronic microangiopathic change. Mild generalized parenchymal volume loss, which is commensurate for age. ASPECTS: 10 VENTRICLES/EXTRA-AXIAL SPACES: No ventriculomegaly or extra-axial collection. Basal cisterns are patent. EXTRACRANIAL STRUCTURES: No acute or suspicious osseous abnormality. Chronic healed fracture deformity of the left lamina papyracea with herniation of left extraconal fat; otherwise, orbits are unremarkable. Normal soft tissues. Mucosal opacification of left qdw-kg-exefolahc ethmoid air cells; otherwise, remaining imaged portions of the paranasal sinuses are clear. Opacification of the hypoplastic right mastoid air cells and partial opacification right middle ear cavity, which is consistent with a tympanomastoid effusion. Left mastoid air cells and left middle ear cavity are clear. Owpt-nw-dmmfievh calcific atherosclerosis of the carotid siphons. Procedure Note Danika Tijerina MD - 05/07/2023 EXAM: CT BRAIN STROKE, DATE/TIME OF EXAM: 05/07/2023 5:27 PM, LOCATION:[facility] HISTORY: R53.1: Weakness ADDITIONAL CLINICAL INFORMATION: Ordering Provider Reason For Exam: Right-sided weakness. NIH strokescale of 10. EXAMINATION: CT scan of the head without intravenous contrast TECHNIQUE: CT of the head was performed without intravenous contrast according to standard protocol. CT dose reduction technique was used, including Automated Exposure Control. COMPARISON: No prior similar studies are available for comparison. FINDINGS: BRAIN PARENCHYMA: No acute hemorrhage, large vascular territory infarct,or mass effect. Scattered white matter hypodensities, which are nonspecific but likely represents the sequela of chronic microangiopathic change.Mild generalized parenchymal volume loss, which is commensurate for age. ASPECTS: 10 VENTRICLES/EXTRA-AXIAL SPACES: No ventriculomegaly or extra-axial collection. Basal cisterns are patent. EXTRACRANIAL STRUCTURES: No acute or suspicious osseous abnormality. Chronic healed fracture deformity of the left lamina papyracea with herniation of left extraconal fat; otherwise, orbits are unremarkable. Normal soft tissues. Mucosal opacification of left nmi-go-jkwcylpuoiqmxssc air cells; otherwise, remaining imaged portions of the paranasal sinuses are clear. Opacification of the hypoplastic right mastoid air cells and partial opacification right middle ear cavity, which is consistent witha tympanomastoid effusion. Left mastoid air cells and left middle earcavity are clear. Dyjy-co-mxdazair calcific atherosclerosis of the carotid siphons. IMPRESSION: 1.No acute intracranial hemorrhage or large vascular territory infarct. 2.Right tympanomastoid effusion. Results of this exam were verbally discussed by Dr. Matias with Dr. Ponce 05/07/2023 at 5:30 PM for a Critical Stroke Protocol with readback confirmation and verification. The images were reviewed by attending physician Dr. Danika Tijerina prior to this communication. I, Danika Tijerina MD, PhD have personally reviewed and interpreted this examination/study. > Interpreting Provider: Danika Tijerina MD, PhD on 05/07/2023 6:00 PM Aki [address]ar MD CT ORDERABLES * INR WHOLE BLOOD - POINT OF CARE (IP) STROKE (05/07/2023 5:27 PM AXLE INSPECTOR) INR 1.0 0.9 - 1.2 05/07/2023 5:38 PM [facility] Device [id number] 05/07/2023 5:38 PM [facility] Bean Roaster ID [id number] 05/07/2023 5:38 PM [facility] Blood BLOOD SPECIMEN / Unknown 05/07/2023 5:27 PM AXLE INSPECTOR 05/07/2023 5:38 PM AXLE INSPECTOR Provider Unknown LAB - POINT OF CARE ORDERABLES [facility] [address] [place] [address], [facility] [phone] * (ABNORMAL) CREATININE - POCT INTERFACED (05/07/2023 5:25 PM AXLE INSPECTOR) [facility] Creatinine POCT 1.09 0.30 - 1.30 mg/dL 05/07/2023 5:38 PM [facility] eGFR 74(L) >90 mL/min/1.7 3 m2 05/07/2023 5:38 PM [facility] Blood BLOOD SPECIMEN / Unknown 05/07/2023 5:25 PM AXLE INSPECTOR 05/07/2023 5:38 PM AXLE INSPECTOR Provider Unknown LAB - POINT OF CARE ORDERABLES Performing Organization Address City/[facility]/ZIP Co de Phone Number [address] [address], [facility] [phone] * EYE EXAM (04/05/2021) Anatomical Region Laterality Modality Other 04/05/2021 Narrative 04/05/2021 Ordered by an unspecified provider. Scanned Document SCANNING ONLY * HEMOGLOBIN A1C - POINT OF CARE (AMB) [facility] (12/09/2020) Only the most recent of14 resultswithin the time period is included. Pathologist [facility] Hemoglobin A1c POCT 8.2 % BLOOD SPECIMEN / Unknown 12/09/2020 Katey Clifton MD LAB - POINT OF CARE ORDERABLES * IMAGING RADIOLOGY XRAY RESULTS ORDER (10/11/2020) Only the most recent of3 resultswithin the time period is included. Anatomical Region Laterality Modality Other 10/11/2020 Narrative 10/11/2020 Ordered by an unspecified provider. Scanned Document IMAGING * MD DRAIN/INJECT LARGE JOINT/BURSA (09/01/2020 2:13 PM CDT) Narrative Eligio Mayes MD - 09/01/2020 2:13 PM CDT Eligio Mayes MD 09/01/2020 3:52 PM INJECTION PROCEDURE NOTE Risks/benefits of injection discussed, including bleeding, infection, site reaction, and possible flare. Pt. Expresses understanding and verbally consents for injection. Area prepped in usual sterile manner. 2 cc of 40 mg/mL Triamcinolone Acetonide + 3 cc of 0.5% bupivicaine was injected into Right GH Joint using a posterior approach. No complications. Pt. Tolerated well. Eligio Mayes MD Eligio Mayes MD PROCEDURE/MINOR GARCIA RGICAL ORDERABLES * XR SHOULDER RIGHT 2VW OR MORE (08/31/2020 12:59 PM CDT) Anatomical Region Laterality Modality Upper Extremity Radiographic Trish ging 08/31/2020 2:48 PM CDT Narrative 08/31/2020 2:48 PM CDT 3 views right shoulder Indication: Right shoulder pain Findings: There is no displaced fracture or dislocation. There is no osseous destruction. There is glenohumeral joint space narrowing and hypertrophic spurring. There is also hypertrophic spurring at the acromioclavicular joint with subacromial spurring and narrowing of acromiohumeral distance. In addition, there is calcification along the distal rotator cuff near the humeral insertion, consistent with calcific tendinitis. *Reading Radiologist: Emmanuel Lares on 08/31/2020 at 2:48 PM Procedure Note Emmanuel Lares MD - 08/31/2020 3 views right shoulder Indication: Right shoulder pain Findings: There is no displaced fracture or dislocation. There is no osseous destruction. There is glenohumeral joint space narrowing and hypertrophic spurring. There is also hypertrophic spurring at the acromioclavicular joint with subacromial spurring and narrowing of acromiohumeral distance. In addition, there is calcification along the distal rotator cuff near the humeral insertion, consistent with calcific tendinitis. *Reading Radiologist: Emmanuel Lares on 08/31/2020 at 2:48 PM Katey Clifton MD DIAGNOSTIC IMAGING O RDERABLES * GLUCOSE - POINT OF CARE (AMB) [facility] (02/03/2019) Only the most recent of7 resultswithin the time period is included. Glucose WB/POC 112 70 - 115 mg/dL Blood BLOOD SPECIMEN / Unknown 02/03/2019 Katey Cl[place]ton MD LAB - POINT OF CARE ORDERABLES * MD DRAIN/INJECT LARGE JOINT/BURSA (09/23/2018 11:29 AM CDT) Narrative Eligio Mayes MD - 09/23/2018 11:29 AM CDT Eligio Mayes MD 09/23/2018 11:29 AM INJECTION PROCEDURE NOTE Risks/benefits of injection discussed, including bleeding, infection, site reaction, and possible flare. Pt. Expresses understanding and verbally consents for injection. Area prepped in usual sterile manner. 2 cc of 40 mg/mL Triamcinolone Acetonide + 2 cc of 0.5% Marcaine was injected into Left shoulder Joint using an posterior approach. No complications. Pt. Tolerated well. Eligio Mayes MD Eligio Mayes MD PROCEDURE/MINOR GARCIA RGICAL ORDERABLES * MD INJ TENDON SHEATH/LIGAMENT/APONEUROSIS (09/23/2018 11:29 AM CDT) Narrative Eligio Mayes MD - 09/23/2018 11:29 AM CDT Eligio Mayes MD 09/23/2018 11:29 AM Right thumb Trigger Injection The volar aspect of the finger at the level of the A1 maximino was cleansed with a sterile alcohol wipe and ethyl chloride spray was applied to the injection site prior to the injection. A mixture of 0.5mL of 1% lidocaine and 40 mg depo-medrol was injected into the flexor tendon sheath without difficulty using a 25-gauge needle. The patient tolerated the procedure well. The site was then covered with a sterile Band-Aid. Eligio Mayes MD Eligio Mayes MD PROCEDURE/MINOR GARCIA RGICAL ORDERABLES * (ABNORMAL) LIPID PROFILE - POINT OF CARE (AMB) [facility] (09/16/2018) Only the most recent of5 resultswithin the time period is included. Cholesterol Total <100 HDL 28 mg/dL Triglycerides 327(A) 40 - 160 mg/dL LDL Calculated n/a Blood BLOOD SPECIMEN / Unknown 09/16/2018 Impressions Jerzy Mott M - 09/16/2018 Glucose: 187 Katey Clifton MD LAB - POINT OF CARE ORDERABLES * MMR IMMUNITY PROFILE (06/17/2018 1:51 PM CDT) Measles (Rubeola) Antibody IgG >300.00 AU/mL [facility] Comment: AU/mL Interpretation ----- <25.00 Negative 25.00-29.99 Equivocal >29.99 Positive A positive result indicates that the patient has antibody to measles virus. It does not differentiate between an active or past infection. The clinical diagnosis must be interpreted in conjunction with clinical signs and symptoms of the patient. Mumps Virus Antibody IgG 273.00 AU/mL [facility] Comment: AU/mL Interpretation ------- <9.00 Negative 9.00-10.99 Equivocal >10.99 Positive A positive result indicates that the patient has antibody to mumps virus. It does not differentiate between an active or past infection. The clinical diagnosis must be interpreted in conjunction with clinical signs and symptoms of the patient. Rubella Antibody 31.50 index [facility] Comment: Index Interpretation ----- <0.90 Not consistent with Immunity 0.90-0.99 Equivocal > or = 1.00 Consistent with Immunity The presence of rubella IgG antibody suggests immunization or past or current infection with rubella virus. REPORT COMMENT: FASTING:NO Test Performed at: [facility] [address] [place] [address] MARKUS MUELLER DO,MPH Blood BLOOD SPECIMEN / Unknown 06/17/2018 1:51 PM CDT 06/17/2018 1:52 PM CDT Katey Clifton MD LAB - SEROLOGY ORDER CARMEN Performing Organization Address [facility] de Phone Number [phone] [place] [address] * PSA TOTAL REFLEX TO FREE (04/12/2018 9:44 AM AXLE INSPECTOR) PSA 0.3 < OR = 4.0 ng/mL [facility] Comment: The Total PSA value from this assay system is standardized against the equimolar PSA standard. The test result will be approximately 20% higher when compared to the WHO-standardized Total PSA (Siemens assay). Comparison of serial PSA results should be interpreted with this fact in mind. PSA was performed using the Miley Roxy Immunoassay method. Values obtained from different assay methods cannot be used interchangeably. PSA levels, regardless of value, should not be interpreted as absolute evidence of the presence or absence of disease. REPORT COMMENT: FASTING:YES Test Performed at: [facility] [address] [place] [address] MARKUS MUELLER DO,MPH Blood BLOOD SPECIMEN / Unknown 04/12/2018 9:44 AM AXLE INSPECTOR 04/12/2018 9:46 AM AXLE INSPECTOR Katey Clifton MD LAB - CHEMISTRY ORDE GRACIE Performing Organization Address [facility] Co de Phone Number [phone] [place] [address] * HEMOGLOBIN A1C - POINT OF CARE (AMB) (11/12/2017 10:13 AM CDT) Only the most recent of2 resultswithin the time period is included. Hemoglobin A1c POCT 9.0 % QC Verified Yes Yes Blood BLOOD SPECIMEN / Unknown 11/12/2017 10:13 AM CDT Katey Clifton MD LAB - POINT OF CARE ORDERABLES * MD POLYSOM 6/>YRS CPAP 4/> PARM (10/13/2017 2:51 PM CDT) Narrative Raman Ellis MD - 10/13/2017 2:51 PM CDT Raman Ellis MD 10/13/2017 2:51 PM Accredited by the [employer] [facility], [address] [id number] Telephone : [phone] Medical Records Patient Name: Chente Bassett : @ Date of study: 10/11/2017 Referring Physician: Katey Clifton MD INTERPRETATION OF POLYSOMNOGRAM TRIAL OF CONTINUOUS POSITIVE AIRWAY THERAPY IMPRESSION: Obstructive Sleep Apnea (AHI=20.0 respiratory events/h; Yvon SaO2=85%; SaO2 below 88%=0.1% of night; Efficiency=88%; Stage R=23%; prcv=570 kg; [facility] 23 August 2017) Periodic Limb Movement Disorder - 47.3/h on CPAP therapy 11 October 2017 Patient Active Problem List Diagnosis COPD suggested by initial evaluation Controlled type 2 diabetes mellitus without complication, with long-term current use of insulin rn long term care current use of insulin Lumbar spinal stenosis De Quervain's tenosynovitis, left Chronic hepatitis C without hepatic coma Other male erectile dysfunction Essential hypertension Hyperlipemia Chronic back pain Hypersomnia due to medical condition HYACINTH (obstructive sleep apnea) History of iron deficiency anemia Restless legs syndrome (RLS) COMMENTS: On the diagnostic night, the degree of sleep fragmentation placed the patient at risk for metabolic sequelae that include hypertension, cardiac events, thrombosis, insulin resistance, and weight gain. In addition, fragmentation of sleep and the consequent daytime effects on cognition and function might place the patient at risk for accidents. With polysomnographically guided titration of CPAP therapy, sleep efficiency improved to 92% and stage R increased to 28%. RECOMMENDATIONS: 1. Appointment for review of results, impressions, and recommendations with ordering physician. 2. The patient should be maintained on nasal PAP at pressure setting of 5 cm H2O. 3. Download of treatment data in 4 weeks and then every 3 months or if problems. 4. The patient should be counseled and cautioned regarding safe driving. 5. The patient should be counseled to avoid sleep deprivation, alcohol, and all sedative medications as these can exacerbate sleep apnea. 6. The patient should continue a weight reduction program. Even a mild to moderate weight loss should result in significant improvement in the patient s nocturnal respiratory events. 7. Exercise should be undertaken daily, with respect given to any orthopedic limitations. Physical therapy or physical medicine consultation may be warranted. Strenuous exercise, which activates the sympathetic nervous system (adrenaline system) not only helps with weight loss and mood, but also improves sleep quality, and upper respiratory muscle tone during sleep. 8. The patient should be counseled on principles of good sleep hygiene with particular emphasis on maintaining a regular sleep/wake schedule, ensuring sufficient total sleep time, and providing a good environment for sleep - dark, cool, quiet, secure area. 9. If apnea persists after weight loss, consideration may be given to a dental referral for evaluation of a mandibular repositioning device or an ENT consultation to determine if the patient is an appropriate candidate for surgical intervention for treatment of obstructive sleep apnea. RESULTS: During this therapeutic study, the patient slept for 383 minutes and had sleep efficiency of 92%. The patient's initial sleep latency was 0 minutes. The initial REM latency was 46.5 minutes. The wake after sleep onset (WASO) was 32 minutes. There were 17 awakenings. Continuous positive airway pressure (CPAP) was titrated from a minimum setting of 4 cmH2O to a maximum setting of 8 cmH2O. CPAP at the minimal level of 4 cm H2O was associated with a overall hypopnea-apnea index of 1.0 per hour and 100% efficiency. Overall periodic limb movement index was 47.3 ECG demonstrates NSR Parasomniae were not noted during this therapeutic study. Chente Bassett [facility] Test Date 10-11-17 Sex Male Date 55 Height 5'7 Start Time 10:56:13 Weight 241.0 lbs End Time 05:51:44 BMI 37.7 Total Length of Sleep Referring Physician Caleb Total Sleep Time 383.5 min. Techs DH Time in Bed 415.5 min. Scorer DH WASO 31.8 min % below 88% 0.0% Total Sleeping Time by Body Position Total Leg Movements # #/hr. Prone 0.0 min. No Prone % Total 302 47.3 Lateral 206.0 min. 53.7 % Arousals from Leg Movts. 34 5.3 Supine 177.5 min. 46.3 % Sleep Stages Minutes % TST Sleep latencies and Index Awake 32.0 min. Sleep Latency 0.3 min. Stage NI 35.5 min. 9.3 % Modified Sleep Latency 0.0 min. Stage N2 240.5 min. 62.7 % REM Latency 46.5 min. Stage N3 No SWS min. 0.0 % Sleep Efficiency Index 92.3 % REM 107.5 min. 28.0 % Modified Sleep Efficiency 92.3 % CPAP Trend Pressure Sleep Efficiency Sleep Time AHI AFNARS Leg Arousals RERAS TRT 57.7 min. 4cm 1.00 57.6 min. 1.0/hr. 9.4/hr. 7.3/hr. 3.1/hr. TRT 83.5 min. 6cm 0.98 82.0 min. 4.4/hr. 10.2/hr. 7.3/hr. 3.7/hr. TRT 274.1 min. 8cm 0.89 243.9 min. 1.0/hr. 6.6/hr. 4.2/hr. 0.5/hr. EEG: Normal ECG: NSR PLMS: Freq LM, some w/ arousals Snoring: No snores Summary/Comments: Pts CPAP titration was success. Pt acclimated very well to CPAP. He was titrated on pressures of 4-8 cms, and wore an AirFit P10 mask. Pt was mostly event free in REM supine. 6 For a full list of impressions and recommendations, please see the top of this report. Raman Ellis MD, FACP, FACE, FAA Sleep Medicine and Metabolism commercial manager [facility] Raman Ellis MD PROCEDURE/MINOR SURG ICAL ORDERABLES * MD POLYSOM 6/> YRS 4/> MICHELLE (09/02/2017 4:30 PM CDT) Narrative Raman Ellis MD - 09/02/2017 4:30 PM CDT Raman Ellis MD 09/02/2017 4:30 PM Accredited by the [employer] [facility], [address] [facility] [place] [address] Telephone : [phone] Medical Records Patient Name: Chente Bassett : 1955 Date of Study: 08/23/2017 Referring Physician: Katey Clifton MD [address] [place] [address] Type of Montage: FULL NIGHT DIAGNOSTIC POLYSOMNOGRAM IMPRESSION: Obstructive Sleep Apnea (AHI=20.0 respiratory events/h; Yvon SaO2=85%; SaO2 below 88%=0.1% of night; Efficiency=88%; Stage R=23%; mvhe=465 kg; [facility] 23 August 2017) Periodic Limb Movement Disorder - provisonal Patient Active Problem List Diagnosis COPD suggested by initial evaluation Controlled type 2 diabetes mellitus without complication, with long-term current use of insulin rn long term care current use of insulin Lumbar spinal stenosis De Quervain's tenosynovitis, left Chronic hepatitis C without hepatic coma Other male erectile dysfunction Essential hypertension Hyperlipemia Chronic back pain Hypersomnia due to medical condition HYACINTH (obstructive sleep apnea) History of iron deficiency anemia Restless legs syndrome (RLS) COMMENTS: On the diagnostic night, the degree of sleep fragmentation placed the patient at risk for metabolic sequelae that include hypertension, cardiac events, thrombosis, insulin resistance, and weight gain. In addition, fragmentation of sleep and the consequent daytime effects on cognition and function might place the patient at risk for accidents. RECOMMENDATIONS: 1. The patient should return to the sleep center for a trial of nasal CPAP. 2. The patient should be counseled and cautioned regarding safe driving. 3. The patient should be counseled to avoid sleep deprivation, alcohol, and all sedative medications as these can exacerbate upper airway resistance. 4. The patient should continue a weight reduction program. Even a mild to moderate weight loss should result in significant improvement in the patient s upper airway resistance. 5. Exercise should be undertaken daily, with respect given to any orthopedic limitations. Physical therapy or physical medicine consultation may be warranted. Strenuous exercise, which activates the sympathetic nervous system (adrenaline system) not only helps with weight loss and mood, but also improves sleep quality, and upper respiratory muscle tone during sleep. 6. The patient should be counseled on principles of good sleep hygiene with particular emphasis on maintaining a regular sleep/wake schedule, maintaining a good environment for sleep (dark, cool, quiet), and ensuring sufficient total sleep time. 7. Further treatment protocols will be formulated following the patient s trial of CPAP. DIAGNOSTIC POLYSOMNOGRAM During this diagnostic study, the patient slept for 327 minutes and had sleep efficiency of 88%. The patient's initial sleep latency was 2 minutes. The initial REM latency was 28.5 minutes. The wake after sleep onset (WASO) was 45 minutes. The sleep stages expressed as a percentage of total sleep time: stage N1: 14% stage N2: 32% stage N3: 0% stage REM: 23% The patient's overall hypopnea-apnea index was 20 per hour while the respiratory effort-related arousal index was 11.7 per hour. The minimum in oxyhemoglobin saturation was 85% during REM sleep and 90% during non-REM sleep. The patient spent 0.1% of recording time with oxyhemoglobin saturation below 88%. The patient's periodic limb movement index was 22.2 per hour. There were 21 awakenings and 5 spontaneous arousals. EKG showed NSR. Parasomniae were not noted during this diagnostic study. Technicians noted snoring and respiratory events. Strong central component Raman Ellis MD, FACP, FACE, FAA Sleep Medicine and Metabolism commercial manager [facility] CC: Katey Clifton MD [address] [facility] [address] [place] [address] Katey Clifton MD Raman Ellis MD PROCEDURE/MINOR SURG ICAL ORDERABLES * LIPID PROFILE - POINT OF CARE (AMB) (06/12/2017) QC Verified Yes Cholesterol POCT <100 240 mg/dL LDL 37 Non HDL Cholesterol POCT n/a 130 mg/dL Triglycerides POCT 49 200 mg/dL HDL POCT 37 60 mg/dL Total Cholesterol/HDL Ratio POCT n/a 6.0 Blood BLOOD SPECIMEN / Unknown 06/12/2017 Katey Clifton MD LAB - POINT OF CARE ORDERABLES * PSA FREE + TOTAL PANEL (04/04/2017 3:04 PM AXLE INSPECTOR) PSA Total 0.1 < OR = 4.0 ng/mL [facility] ([facility]) PSA Free 0.1 ng/mL [facility]) PSA % Free 100 >25 % (calc) [facility] ([facility]) Comment: PSA(ng/mL) Free PSA(%) Estimated(x) Probability of Cancer(as%) 0-2.5 (*) Approx. 1 2.6-4.0(1) 0-27(2) 24(3) 4.1-10(4) 0-10 56 11-15 28 16-20 20 21-25 16 >or =26 8 >10(+) N/A >50 References:(1)Marcus et al.:Urology 60: 469-474 (2001) (2)Marcus et al.:J.Urol 168: 922-925 (2001) Free PSA(%) Sensitivity(%) Specificity(%) < or = 25 85 19 < or = 30 93 9 (3)Catalona et al.:RAHEEM 277: 6079-6954 (1996) (4)Catalona et al.:RAHEEM 279: 1213-5272 (1997) (x)These estimates vary with age, ethnicity, family history and CHAVA results. (*)The diagnostic usefulness of % Free PSA has not been established in patients with total PSA below 2.6 ng/mL (+)In men with PSA above 10 ng/mL, prostate cancer risk is determined by total PSA alone. The Total PSA value from this assay system is standardized against the equimolar PSA standard. The test result will be approximately 20% higher when compared to the WHO-standardized Total PSA (Siemens assay). Comparison of serial PSA results should be interpreted with this fact in mind. PSA was performed using the Miley Sylvania Immunoassay method. Values obtained from different assay methods cannot be used interchangeably. PSA levels, regardless of value, should not be interpreted as absolute evidence of the presence or absence of disease. REPORT COMMENT: FASTING:NO Test Performed at: [facility] [address] [place] [address] MARKUS MUELLER DO,MPH Blood specimen (specimen) BLOOD SPECIMEN / Unknown 04/04/2017 3:04 PM AXLE INSPECTOR 04/04/2017 3:04 PM AXLE INSPECTOR Katey Clifton MD LAB - CHEMISTRY NAZIA BOWMAN Performing Organization Address [facility] Co de Phone Number [facility] ([facility]) [address] [place] [address] * TSH (04/04/2017 3:04 PM AXLE INSPECTOR) Only the most recent of3 resultswithin the time period is included. Pathologist [facility] TSH 2.92 0.40 - 4.50 mIU/L [facility] ([facility]) Comment: REPORT COMMENT: FASTING:NO Test Performed at: [facility] [address] [place] [address] MARKUS MUELLER DO,MPH Blood specimen (specimen) BLOOD SPECIMEN / Unknown 04/04/2017 3:04 PM AXLE INSPECTOR 04/04/2017 3:04 PM AXLE INSPECTOR Katey Clifton MD LAB - CHEMISTRY NAZIA BOWMAN Performing Organization Address [facility] de Phone Number [facility] ([facility]) [address] [place] [address] * DRUG SCREEN URINE PAIN MGMT PANEL A (12/14/2016 10:00 PM CDT) [facility] Amphetamines negative [facility] ([facility]) Barbiturates Screen Urine negative [facility] ([facility]) Benzodiazepine negative [facility] ([facility]) Cocaine Metabolite negative [facility] ([facility]) Marijuana negative [facility] ([facility]) Methadone negative [facility] ([facility]) Opiates negative [facility] ([facility]) Propoxyphene negative [facility] ([facility]) Comment SEE NOTE [facility] ([facility]) Comment: The submitted urine specimen was tested at the listed cutoffs and, if POSITIVE, confirmed by a second independent chemical method. Confirmations are not performed on negative screens. Units are ng/mL. Screen Confirmation Cutoff Cutoff Amphetamines 1000 Amphetamine 300 Methampheatine 300 Barbiturates 300 Butalbital 200 Butabarbital 200 Amobarbital 200 Pentobarbital 200 Secobarbital 200 Phenobarbital 200 Benzodiazepines 300 Nordiazepam 100 Oxazepam 100 Temazepam 100 Lorazepam 100 Flurazepam metabolite 100 Alprazolam 100 Cocaine metabolites 300 100 Marijuana metabolites 20 5 Methadone 300 150 Opiates 300 Codeine 100 Morphine 100 Hydrocodone 100 Hydromorphone 100 Propoxyphene 300 Propoxyphene mtb 100 Oxycodone negative [facility] ([facility]) Comment SEE NOTE [facility] ([facility]) Comment: The submitted urine specimen was screened at the initial test level listed below. If positive, confirmatory testing was performed with the confirmation test level listed below. Confirmatory testing not performed on negative screens. Initial Confirmation Analyte Test Level Test Level Oxycodone 100 ng/mL 100 ng/mL NO COLLECTION DATE RECEIVED. WE HAVE USED THE DATE THE SPECIMEN WAS RECEIVED BY THIS LABORATORY THE COLLECTION DATE. IF THIS IS INCORRECT, PLEASE CONTACT CLIENT SERVICES. PHONE NUMBER: [phone] Test Performed at: [facility] [address] [address] CHACE KING MD,PHD 12/14/2016 10:0 0 PM CDT 12/13/2016 8:39 AM CDT Katey Clifton MD LAB - TOXICOLOGY ORD ERABLES [facility] ([facility]) * XR WRIST LEFT 3VW OR MORE (03/13/2016 11:10 AM AXLE INSPECTOR) Anatomical Region Laterality Modality Wrist / Hand Other Impressions 03/13/2016 11:47 AM AXLE INSPECTOR IMPRESSION: No acute osseous abnormality. This report was electronically signed by CHUCK PADILLA MD on 03/13/2016 11:47 AM . Narrative 03/13/2016 11:47 AM AXLE INSPECTOR Exam: XR WRIST LEFT 3+ VW History: pain Comparison: None available. Findings: No acute fracture or dislocation is seen. A few bone spurs are noted along the lateral aspect of the distal radius. A spur or calcification projects over the distal ulna on the frontal projection. The joint spaces are normal. There are no erosions. Bone density and the soft tissues are unremarkable. Procedure Note Chuck Padilla MD - 06/01/2017 Exam: XR WRIST LEFT 3+ VW History: pain Comparison: None available. Findings: No acute fracture or dislocation is seen. A few bone spurs are noted alongthe lateral aspect of the distal radius. A spur or calcification projectsover the distal ulna on the frontal projection. The joint spaces arenormal. There are no erosions. Bone density and the soft tissues are unremarkable. IMPRESSION IMPRESSION: No acute osseous abnormality. This report was electronically signed by CHUCK PADILLA MD on 03/13/201611:47 AM . Frandy Xavier MD DIAGNOSTIC IMAGING O RDERABLES * (ABNORMAL) MICROALB/CREAT RATIO URINE RANDOM PANEL (01/01/2016 8:41 AM CDT) Only the most recent of2 resultswithin the time period is included. Creatinine Urine 113 20 - 370 mg/dL [facility] ([facility]) Microalbumin Urine 109.8 mg/dL [facility] ([facility]) Comment: Verified by repeat analysis. Reference Range Not established Urine Albumin/Creatinine Ratio 972(H) <30 mcg/mg creat [facility] ([facility]) Comment: The ADA defines abnormalities in albumin excretion as follows: Category Result (mcg/mg creatinine) Normal <30 Microalbuminuria 30-299 Clinical albuminuria > OR = 300 The ADA recommends that at least two of three specimens collected within a 3-6 month period be abnormal before considering a patient to be within a diagnostic category. REPORT COMMENT: FASTING:YES Test Performed at: [facility] [address] [place] [address] MARKUS MUELLER DO,MPH Urine specimen (specimen) URINE / Unknown 01/01/2016 8:41 AM CDT 01/01/2016 8:43 AM CDT Katey Clifton MD LAB - URINE CHEMISTR Y ORDERABLES [facility] ([facility]) * CULTURE URINE (01/14/2015 1:00 PM AXLE INSPECTOR) Urine Culture Routine SEE NOTE [facility] ([facility]) Comment: CULTURE, URINE, ROUTINE MICRO NUMBER: [id number] TEST STATUS: FINAL SPECIMEN SOURCE: URINE SPECIMEN QUALITY: ADEQUATE RESULT: No Growth NO COLLECTION DATE RECEIVED. WE HAVE USED THE DATE THE SPECIMEN WAS RECEIVED BY THIS LABORATORY THE COLLECTION DATE. IF THIS IS INCORRECT, PLEASE CONTACT CLIENT SERVICES. PHONE NUMBER: [phone] Test Performed at: [facility] [address] ESTHER ROBERTS MD Urine specimen (specimen) URINE / Unknown 01/14/2015 1:00 PM AXLE INSPECTOR 01/12/2015 3:05 AM AXLE INSPECTOR Narrative [facility] ([facility]) - 01/14/2015 1:00 PM AXLE INSPECTOR Specimen Type->Urine Katey Clifton MD LAB - MICROBIOLOGY O RDERABOB Performing Organization Address [facility] Co de Phone Number [facility] ([facility]) * CHLAMYDIA+GC PABLO PAP VIAL (01/11/2015 9:30 AM AXLE INSPECTOR) Chlamydia trachomatis RNA TMA NOT DETECTED NOT DETECTED [facility] ([facility]) Neisseria gonorrhoeae RNA TMA NOT DETECTED NOT DETECTED [facility] ([facility]) See Note [facility] ([facility]) Comment: This test was performed using the APTIMA COMBO2 Assay ([employer] The analytical performance characteristics of this assay, when used to test [employer]Path specimens have been determined by [employer]. Test Performed at: [facility] [address] [place] [address] MARKUS MUELLER DO,MPH Urine specimen (specimen) 01/11/2015 9:30 AM AXLE INSPECTOR 01/12/2015 3:05 AM AXLE INSPECTOR Narrative [facility] ([facility]) - 01/14/2015 1:00 PM AXLE INSPECTOR Specimen Type->Urine Katey Clifton MD LAB - MICROBIOLOGY O RDERABOB Performing Organization Address [facility] Co de Phone Number [facility] ([facility]) * URINALYSIS - POINT OF CARE (AMB) U (01/11/2015) Glucose UA neg [facility] Bilirubin UA POCT neg [facility] Ketones UA POCT neg [facility] Specific Weston UA 1.025 [facility] Blood Urine POCT 10 [facility] pH UA 6.0 [facility] Protein UA 15 [facility] Urobilinogen UA 0.2 [facility] Nitrite UA neg [facility] WBC UA 2+ [facility] Urine specimen (specimen) 01/11/2015 Katey Clifton MD LAB - POINT OF CARE ORDERABLES [facility] * LAB HISTORICAL RESULTS-ONBASE (12/11/2014) 12/11/2014 Narrative [facility] - 12/15/2014 9:15 PM CDT Historical Provider LAB - CHEMISTRY O RDERABLES [facility] [address] Care Teams File Machine Operator Relationship Specialty Start Date End Date Deion Metzger PCP - General 05/10/23 Deion Metzger 05/10/23
[2024-04-22 16:51] LABS: Creatinine Urine 53.1 mg/dL; Total Protein Urine Random 24 mg/dL; Ur Ttl Prot Creatinine Ratio 0.45 mg/mg (0-0.20)
[2024-04-22 18:00] LABS: Albumin Level 4.2 g/dL (3.5-5.1); Anion Gap 10 mmol/L (4-12); Blood Urea Nitrogen 44 mg/dL (9-20); Calcium 9.1 mg/dL (8.4-10.2); Carbon Dioxide 24 mmol/L (22-30); Chloride 101 mmol/L (98-107); Estimated Glomerular Filt Rate 40; Glucose 594 mg/dL (65-110); Phosphorus 3.8 mg/dL (2.5-4.5); Sodium 135 mmol/L (137-145)
== END 2024-04-22 15:40 | disposition home or self-care (01) ==
LOC: ANHGOSHLAB 15:41
PROVIDERS: PCP Family Medicine; Visit Provider Internal Medicine Nephrology
DX: I12.9 Hypertensive chronic kidney disease with stage 1 through stage 4 chronic kidney disease, or unspecified chronic kidney disease (principal); E11.22 Type 2 diabetes mellitus with diabetic chronic kidney disease; N18.32 Chronic kidney disease, stage 3b
CPT/HCPCS: 36415; 80069; 82570; 84156

== ENCOUNTER 2024-05-12 10:13 | Outpatient (CLI) | payer MEDICARE, SELFPAY ==
--- OUTSIDE RECORDS SUMMARY | 2024-05-12 11:58 | XMS_ITS | Encounter Summary ---
Author Organization [facility] Address [address] [place] [address] Care Team Providers Care Sole Molder Name Role Phone Katey Clifton MD Primary Care Provider [phone] Katey Clifton MD Primary Care Provider [phone] Deion Metzger Primary Care Provider Unavailabl e Katey Clifton MD Unavailable [phone] Deion Metzger Unavailable Unavailable Reason for Visit * Reason Onset Date Comments Medication Issue 08/24/2020 Encounter Details Date Type Department Care Team (Late Contact Info) Description 08/24/2020 Telephone [facility] [address] [place], [place] [id number] Katey Clifton MD [address] [facility] [address] [place] [address] Medication Issue Social History Tobacco [...] Patient Call Back number: Ms. 

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
--- OUTSIDE RECORDS SUMMARY | 2024-05-12 11:59 | XMS_ITS | Patient Health Summary ---
Author Organization [facility] [employer] Address [address] [place] [address] Care Team Providers Care Food And Beverage Attendant Name Role Phone Deion Metzger Primary Care Provider UnavailDeion Gotti Unavailable Unavailable Note from [facility],non-owned Affiliates and Associated Physician Practices is amultiple site organization consisting of ambulatory clinics and hospital sitesin [place], [place], [place] and [place]. This disclosure is being madepursuant to the Care Everywhere program and may not contain all information available regarding this patient. Last updated 17.[facility] Allergies * Shellfish Allergy(Urticaria,Skin Reactions) -Medium Criticality [...] with long-term current use of insulin 12/12/2016 shelter current use of insulin 12/12/2016 Lumbar spinal [...] Recorded Patient Health Questionnaire-2 Score 0 05/08/2023 [facility] [employer] of Occupat ional Health - Occupational Stress [...] place to sleep or slept in a group home (including now)? No 05/08/2023 Sex and Gender Information Value Date Recorded Sex Assigned at Not on file Gender Identity Not on file Sexual Orientation Not on file Last Filed Vital Signs Vital Sign Reading Time Taken Comments Blood Pressure 146/84 08/08/2023 2:04 PM CDT Pulse 87 08/08/2023 2:04 PM CDT Temperature 36.7 C (98 F) 05/09/2023 8:00 AM TAPE CONTROL SKIN OR SPAR MILL OPERATOR Respiratory Rate 14 08/08/2023 2:04 PM CDT Oxygen Saturation 99% 05/09/2023 8:00 AM TAPE CONTROL SKIN OR SPAR MILL OPERATOR Inhaled Oxygen Concentration - - Weight 103.9 kg (229 lb) 08/08/2023 2:04 PM CDT Height 171.5 cm (5' 7.5 ) 08/08/2023 2:04 PM CDT Body Mass Index 35.34 08/08/2023 2:04 PM CDT Medical Devices Implanted Type Area Retort Cooler Device Identifier Shelf Expiration Date Model / [...] (HCC) * IMAGING/RADIOLOGY/XRAY RESULTS ORDER(Performed 10/11/2020) * AR DRAIN/INJECT LARGE JOINT/BURSA(Performed 09/01/2020) Performed for Primary [...] long-term current use of insulin (HCC) * AR INJ TENDON SHEATH/LIGAMENT/APONEUROSIS(Performed 09/23/2018) Performed for Trigger finger of right thumb * AR DRAIN/INJECT LARGE JOINT/BURSA(Performed 09/23/2018) Performed for Adhesive [...] long-term current use of insulin (HCC) * AR POLYSOM 6/>YRS CPAP 4/> PARM(Performed 10/13/2017) Performed for Mixed sleep apnea * AR POLYSOM 6/> YRS 4/> MICHELLE(Performed 09/02/2017) Performed [...] * CARDIAC EKG ORDER (05/09/2023 2:58 PM TAPE CONTROL SKIN OR SPAR MILL OPERATOR) Narrative 05/09/2023 2:58 PM TAPE CONTROL SKIN OR SPAR MILL OPERATOR Ordered by an unspecified provider. Scanned Document CARDIAC SERVICES ORD ERABLES * (ABNORMAL) GLUCOSE - POINT OF CARE (05/09/2023 11:45 AM TAPE CONTROL SKIN OR SPAR MILL OPERATOR) Only the most recent of14 resultswithin the time period is included. [facility] Glucose WB/POC 336(H) 70 - 115 mg/dL 05/09/2023 11:51 AM [facility] Specimen Type Cap Fingerstick 2023 11:51 AM [facility] Blood BLOOD SPECIMEN / Unknown 05/09/2023 11:45 AM TAPE CONTROL SKIN OR SPAR MILL OPERATOR 05/09/2023 11:50 AM TAPE CONTROL SKIN OR SPAR MILL OPERATOR Aki Vivar MD LAB - POINT OF CARE ORDERABLES [facility] [address] [place] [phone], [facility] [phone] * (ABNORMAL) CBC W/O DIFFERENTIAL (05/09/2023 12:01 AM [facility]) Only the most recent of2 resultswithin the time period is included. WBC 6.7 4.0 - 10.7 x10E9/L 05/09/2023 12:25 AM [facility] RBC Count 3.57(L) 4.30 - 5.80 x10E12/L 05/09/2023 12:25 AM [facility] Hemoglobin 10.6(L) 13.3 - 17.5 g/dL 05/09/2023 12:25 AM [facility] Hematocrit 31.3(L) 38.7 - 51.1 % 05/09/2023 12:25 AM [facility] MCV 87.7 80.0 - 98.0 fL 05/09/2023 12:25 AM [facility] MCH 29.7 26.7 - 33.6 pg 05/09/2023 12:25 AM [facility] MCHC 33.9 31.7 - 36.3 g/dL 05/09/2023 12:25 AM [facility] RDW-CV 12.2 11.3 - 14.8 % 05/09/2023 12:25 AM [facility] Platelet Count 229 150 - 420 x10E9/L 05/09/2023 12:25 AM [facility] MPV 9.8 7.8 - 11.4 fL 05/09/2023 12:25 AM [facility] Blood BLOOD SPECIMEN / Unknown Venipuncture / Unknown 05/09/2023 12:01 AM TAPE CONTROL SKIN OR SPAR MILL OPERATOR 05/09/2023 12:21 AM TAPE CONTROL SKIN OR SPAR MILL OPERATOR Adarsh Kapoor MD LAB - HEMATOLOGY ORD ERABLES [facility] [address] [place] [address], [facility] [phone] * (ABNORMAL) BASIC METABOLIC PANEL (CALCIUM TOTAL) (05/09/2023 12:01 AM TAPE CONTROL SKIN OR SPAR MILL OPERATOR) Only the most recent of2 resultswithin the time period is included. BUN 33(H) 7 - 26 mg/dL 05/09/2023 12:50 AM [facility] Creatinine 1.43(H) 0.71 - 1.16 mg/dL 05/09/2023 12:50 AM [facility] Sodium 141 136 - 145 mmol/L 05/09/2023 12:50 AM [facility] Potassium 3.9 3.5 - 4.5 mmol/L 05/09/2023 12:50 AM [facility] Chloride 110(H) 98 - 107 mmol/L 05/09/2023 12:50 AM [facility] CO2 23 22 - 29 mmol/L 05/09/2023 12:50 AM [facility] Glucose 175(H) 70 - 115 mg/dL 05/09/2023 12:50 AM [facility] Calcium 7.8(L) 8.4 - 10.2 mg/dL 05/09/2023 12:50 AM [facility] Anion Gap 8 6 - 16 05/09/2023 12:50 AM [facility] BUN/Creatinine Ratio 23 7 - 23 05/09/2023 12:50 AM [facility] Osmolality Calculated 304(H) 275 - 295 mOsm/kg 05/09/2023 12:50 AM [facility] eGFR by CKD-EPI 53(L) >=90 mL/min/1.7 3 m2 05/09/2023 12:50 AM [facility] Blood BLOOD SPECIMEN / Unknown Venipuncture / Unknown 05/09/2023 12:01 AM TAPE CONTROL SKIN OR SPAR MILL OPERATOR 05/09/2023 12:21 AM TAPE CONTROL SKIN OR SPAR MILL OPERATOR Adarsh Kapoor MD LAB - CHEMISTRY NAZIA BOWMAN Performing Organization Address City/[facility]/ZIP Co de Phone Number [address] [address], [facility] [phone] * PHOSPHORUS BLOOD (05/09/2023 12:01 AM TAPE CONTROL SKIN OR SPAR MILL OPERATOR) Only the most recent of2 resultswithin the time period is included. Phosphorus 3.9 2.8 - 5.1 mg/dL 05/09/2023 12:50 AM TAPE CONTROL SKIN OR SPAR MILL OPERATOR [facility] Blood BLOOD SPECIMEN / Unknown Venipuncture / Unknown 05/09/2023 12:01 AM TAPE CONTROL SKIN OR SPAR MILL OPERATOR 05/09/2023 12:21 AM TAPE CONTROL SKIN OR SPAR MILL OPERATOR Aki Vivar MD LAB - CHEMISTRY NAZIA BOWMAN Performing Organization Address [facility] Co de Phone Number [address] [address], [facility] [phone] * MAGNESIUM BLOOD (05/09/2023 12:01 AM TAPE CONTROL SKIN OR SPAR MILL OPERATOR) Only the most recent of2 resultswithin the time period is included. Magnesium 1.7 1.6 - 2.6 mg/dL 05/09/2023 12:50 AM TAPE CONTROL SKIN OR SPAR MILL OPERATOR [facility] Blood BLOOD SPECIMEN / Unknown Venipuncture / Unknown 05/09/2023 12:01 AM TAPE CONTROL SKIN OR SPAR MILL OPERATOR 05/09/2023 12:21 AM TAPE CONTROL SKIN OR SPAR MILL OPERATOR Aki Vivar MD LAB - CHEMISTRY NAZIA BOWMAN Performing Organization Address [facility]/ZIP Co de Phone Number [address] [address], [facility] [phone] * CT HEAD NON CONTRAST (05/08/2023 8:39 PM TAPE CONTROL SKIN OR SPAR MILL OPERATOR) Anatomical Region Laterality Modality Head Computed Tomogra phy 05/08/2023 8:25 PM TAPE CONTROL SKIN OR SPAR MILL OPERATOR Impressions 05/08/2023 10:14 PM TAPE CONTROL SKIN OR SPAR MILL OPERATOR IMPRESSION: 1. No hemorrhagic transformation, midline shift or significant mass effect. 2. No CT evidence of large vascular territory infarct. The report is dictated by Ye Matias MD (vice president of news) Amira Williamson MD have personally reviewed and interpreted this examination/study. > Interpreting Provider: Amira Mott MD on 05/08/2023 10:14 PM Narrative 05/08/2023 10:14 PM TAPE CONTROL SKIN OR SPAR MILL OPERATOR PROCEDURE: CT HEAD WO CONTRAST, DATE/TIME OF EXAM: 05/08/2023 8:13 PM, LOCATION [facility] INDICATION: R53.1: Weakness I63.9: Cerebrovascular accident (CVA), [...] DATE/TIME OF EXAM: 05/08/2023 8:13 PM, LOCATION [facility] INDICATION: R53.1: Weakness I63.9: Cerebrovascular accident (CVA), [...] report is dictated by Ye Matias MD (vice president of news) I, Amira Mott MD have personally reviewed and interpreted this examination/study. > Interpreting Provider: Amira Mott MD on 05/08/2023 10:14 PM [address]ki Vivar MD CT ORDERABLES * ECHO COMPLETE W CONTRAST W BUBBLE STUDY (05/08/2023 11:34 AM TAPE CONTROL SKIN OR SPAR MILL OPERATOR) BSA [id number] m2 SSM CV FUJI PACS LV biplane [...] Index 32 ml/m2 SSM CV FUJI PACS [id number] 7.388 cm SSM CV FUJ I PACS [id number] 6.84 cm SSM CV FUJ I PACS LVIDs index 1.52 1.3 - 2.1 cm/m2 SSM CV FUJI PACS LV LVIDd index 1.67 2.2 - 3.0 cm/m2 SSM CV FUJI PACS Sinus of Valsalva 3.50 cm SS M CV FUJI PACS Sinus of valsalva index 1.56 cm/m2 SSM CV FUJI PACS Anatomical Region Laterality Modality Ultrasound Narrative 05/08/2023 2:44 PM TAPE CONTROL SKIN OR SPAR MILL OPERATOR Technically difficult study Left Ventricle: Left ventricle [...] * (ABNORMAL) HEMOGLOBIN A1C (05/08/2023 8:23 AM TAPE CONTROL SKIN OR SPAR MILL OPERATOR) Only the most recent of5 resultswithin the time period is included. Hemoglobin A1c 13.5(H) <=5.6 % 05/08/2023 9:23 AM [facility] Estimated Average Glucose 341 mg/dL 05/08/2023 9:23 AM [facility] Comment: HbA1c Interpretation: Normal : < 5.7% Pre-diabetes: 5.7-6.4% Diabetes: Equal to or greater than 6.5% Test results diagnostic of diabetes should be repeated for confirmation. Treatment target values recommended by ADA and other clinical organizations should be used to evaluate metabolic control in patients. Reference: [place] [employer], Standards of Care in Diabetes -2020 In patients 70 years and older consider HbA1c target range of 7.0-7.5% (Reference: Alli Lopez et al. JAMDA. 2012) The Sebia assay for the measurement of HbA1c is a National Glycohemoglobin Standardization Program (NGSP) certified method. Blood BLOOD SPECIMEN / Unknown Venipuncture / Unknown 05/08/2023 8:23 AM TAPE CONTROL SKIN OR SPAR MILL OPERATOR 05/08/2023 8:30 AM TAPE CONTROL SKIN OR SPAR MILL OPERATOR Aki Vivar MD LAB - CHEMISTRY NAZIA BWOMAN [place] [id number] [place] [address], [facility] [phone] * XR ABDOMEN KUB PORTABLE (05/08/2023 7:25 AM TAPE CONTROL SKIN OR SPAR MILL OPERATOR) Anatomical Region Laterality Modality Abdomen Radiographic Trish ging 05/08/2023 8:46 AM TAPE CONTROL SKIN OR SPAR MILL OPERATOR Impressions 05/08/2023 12:00 PM TAPE CONTROL SKIN OR SPAR MILL OPERATOR IMPRESSION: 1.Surgical clips are seen in the right upper quadrant. 2.A metallic fragment is seen overlying the lateral aspect of the right 10th rib. 3.Bowel gas pattern suggestive of a mild ileus. Report dictated by Raven Mack Dr, MD (vice president of news). I, Bryson Olson MD have personally reviewed and interpreted this examination/study. > Interpreting Provider: Bryson Olson MD on 05/08/2023 12:00 PM Narrative 05/08/2023 12:00 PM TAPE CONTROL SKIN OR SPAR MILL OPERATOR PROCEDURE: XR ABDOMEN KUB PORTABLE, DATE/TIME OF EXAM: 05/08/2023 8:00 AM, LOCATION [facility] INDICATION: R53.1: Weakness ADDITIONAL CLINICAL INFORMATION: Ordering [...] PORTABLE, DATE/TIME OF EXAM: 05/08/2023 8:00AM, LOCATION [facility] INDICATION: R53.1: Weakness ADDITIONAL CLINICAL INFORMATION: Ordering [...] Report dictated by Raven Mack Dr, MD (vice president of news). I, Bryson Olson MD have personally reviewed and interpreted this examination/study. > Interpreting Provider: Bryson Olson MD on 05/08/2023 12:00 PM Aki Vivar MD DIAGNOSTIC IMAGING O RDERABLES * SARS-COV-2 (COVID-19)+INFLU A+B PCR RAPID (05/08/2023 7:05 AM TAPE CONTROL SKIN OR SPAR MILL OPERATOR) COVID-19 PCR Not detected Not detected 05/08/19 7:51 AM [facility] Influenza A Rapid PABLO Not Detected Not Detected 05/08/2023 7:51 AM [facility] Influenza B PABLO Rapid Not Detected Not Detected 05/08/2023 7:51 AM [facility] Microbiology SPECIMEN FROM NASOPHARYNGEAL STRUCTURE / Unknown Collection / Unknown 05/08/2023 7:05 AM TAPE CONTROL SKIN OR SPAR MILL OPERATOR 05/08/2023 7:09 AM TAPE CONTROL SKIN OR SPAR MILL OPERATOR Narrative [facility] - 05/08/2023 7:51 AM TAPE CONTROL SKIN OR SPAR MILL OPERATOR Influenza assay performed by [employer]. [...] acid amplification assay performance was validated by [facility]. This test has been authorized by [...] Kapoor MD LAB - MICROBIOLOGY O RDERABLES [facility] [address] [place] [phone], [facility] [phone] * (ABNORMAL) LIPID PROFILE (05/08/2023 5:00 AM TAPE CONTROL SKIN OR SPAR MILL OPERATOR) Only the most recent of4 resultswithin the time period is included. Cholesterol Total 148 <200 mg/dL 05/08/2023 5:44 AM [facility] HDL 32(L) >40 mg/dL 05/08/2023 5:44 AM [facility] Comment: ATP III Classification of HDL Cholesterol: <40 mg/dL: Considered a major risk factor. >60 mg/dL: Considered a negative risk factor. LDL Calculated 88 <100 mg/dL 05/08/2023 5:44 AM [facility] Comment: ATP III Classification of LDL Cholesterol: <100 mg/dL: Optimal 100 - 129 mg/dL: Near Optimal/Above Optimal 130 - 159 mg/dL: Borderline High 160 - 189 mg/dL: High >190 mg/dL: Very High Triglycerides 142 <150 mg/dL 05/08/2023 5:44 AM [facility] Comment: ATP III Classification of Triglycerides: <150 mg/dL: Normal 150 - 199 mg/dL: Borderline High 200 - 400 mg/dL: High >500 mg/dL: Very High Blood BLOOD SPECIMEN / Unknown Venipuncture / Unknown 05/08/2023 5:00 AM TAPE CONTROL SKIN OR SPAR MILL OPERATOR 05/08/2023 5:17 AM TAPE CONTROL SKIN OR SPAR MILL OPERATOR Adarsh Kapoor MD LAB - CHEMISTRY NAZIA BOWMAN [address] [address], [facility] [phone] * (ABNORMAL) URINALYSIS W/MICROSCOPIC NO CULTURE (05/08/2023 12:25 AM TAPE CONTROL SKIN OR SPAR MILL OPERATOR) Color UA Straw Straw, Yellow 05/08/2023 1:01 AM [facility] Clarity UA Clear Clear 05/08/2023 1:01 AM [facility] Specific Cody UA 1.021 1.005 - 1.030 05/08/2023 1:01 AM [facility] pH UA 6.0 5.0 - 8.0 pH 05/08/2023 1:01 AM [facility] Protein UA 1+(A) Negative 05/08/2023 1:01 AM [facility] Glucose UA 3+(A) Negative 05/08/2023 1:01 AM [facility] Ketone UA Negative Negative 05/08/2023 1:01 AM [facility] Bilirubin UA Negative Negative 05/08/2023 1:01 AM [facility] Blood UA 1+(A) Negative 05/08/2023 1:01 AM [facility] Nitrite UA Negative Negative 05/08/2023 1:01 AM [facility] Leukocyte Esterase 1+(A) Negative 05/08/2023 1:01 AM [facility] Urobilinogen UA Negative Negative mg/dL 05/08/2023 1:01 AM [facility] RBC UA 0-2 None Seen, 0-2, 3-5 /HPF 05/08/2023 1:01 AM [facility] WBC UA 11-20(A) None Seen, 0-5 /HPF 05/08/2023 1:01 AM [facility] Bacteria UA Trace(A) None /HPF 05/08/2023 1:01 AM [facility] Squamous Epithelial Cells UA 0-2 None Seen, 0-2, 3-5 /HPF 05/08/2023 1:01 AM [facility] Mucus UA 1+ /LPF 05/08/2023 1:01 AM [facility] Urine URINE SPECIMEN OBTAINED BY CLEAN CATCH PROCEDURE / Unknown Collection / Unknown 05/08/2023 12:25 AM [facility] 05/08/2023 12:38 AM [facility] - 05/08/2023 1:01 AM [facility] Adarsh Kapoor MD LAB - URINALYSIS ORD ERABLES Performing Organization Address City/State/[facility] Co de Phone Number [address] [phone] [phone] * (ABNORMAL) URINE DRUG SCREEN IMMUNOASSAY (05/08/2023 12:25 AM [facility]) Pathologist [facility] Amphetamines Screen Urine Negative Negative : < 1000 ng/mL 05/08/2023 1:02 AM [facility] Barbiturates Screen Urine Negative Negative : < 200 ng/mL 05/08/2023 1:02 AM [facility] Benzodiazepine Screen Urine Negative Negative : < 200 ng/mL 05/08/2023 1:02 AM [facility] Opiates Urine Negative Negative : < 300 ng/mL 05/08/2023 1:02 AM [facility] Cocaine Metabolites Urine Negative Negative : < 300 ng/mL 05/08/2023 1:02 AM [facility] Phencyclidine Screen Urine Negative Negative : < 25 ng/ml 05/08/2023 1:02 AM [facility] Cannabinoids Screen Urine Positive(A) Negative : <50 ng/mL 05/08/2023 1:02 AM [facility] Comment:Positive urine canna binoids (THC) screening results should be confirmed by another generally accepted non-immunological method such as gas chromatography or mass spectrometry. Methadone Screen Urine Negative Negative : < 300 ng/mL 05/08/2023 1:02 AM [facility] Fentanyl Screen Urine Negative Negative : <1.5 ng/mL 05/08/2023 1:02 AM [facility] Urine URINE / Unknown Collection / Unknown 05/08/2023 12:25 AM TAPE CONTROL SKIN OR SPAR MILL OPERATOR 05/08/2023 12:38 AM [facility] Narrative [facility] - 05/08/2023 1:02 AM TAPE CONTROL SKIN OR SPAR MILL OPERATOR The Urine Toxicology Screening Panel does not screen for Propoxyphene, Meprobamate, Carisoprodol, Trazodone, [id number] medications and/or volatiles (Acetone, Isopropanol, Methanol or Ethylene Glycol). Ethanol, Salicylate, Acetaminophen, Tricyclic Antidepressants and several therapeutic drugs may be individually assayed in serum or plasma specimen. Toxicology testing by the [facility] is an aid to medical diagnosis and treatment of patients. No documented chain of custody was maintained. Results are intended to be used for clinical purposes only. Adarsh Kapoor MD LAB - URINE CHEMISTR Y ORDERABLES Performing Organization Address City/[facility]/ZIP Co de Phone Number [address] [address], [facility] [phone] * TROPONIN-I HIGH SENSITIVE REFLEX 1HOUR (05/07/2023 10:53 PM TAPE CONTROL SKIN OR SPAR MILL OPERATOR) Troponin I High Sensitive 4 <=35 ng/L 05/07/2023 11:30 PM [facility] Delta Troponin I HS 1 <6 ng/L 05/07/2023 11:30 PM [facility] Blood BLOOD SPECIMEN / Unknown Venipuncture / Unknown 05/07/2023 10:53 PM TAPE CONTROL SKIN OR SPAR MILL OPERATOR 05/07/2023 10:58 PM TAPE CONTROL SKIN OR SPAR MILL OPERATOR Adarsh Kapoor MD LAB - CHEMISTRY ORDE RABLES Performing Organization Address City/[facility]/ZIP Co de Phone Number [address] [address], [place] [phone] * TROPONIN-I HIGH SENSITIVE BASELINE + 1HR (05/07/2023 9:35 PM TAPE CONTROL SKIN OR SPAR MILL OPERATOR) [facility] Troponin I High Sensitive 3 <=35 ng/L 05/07/2023 10:12 PM TAPE CONTROL SKIN OR SPAR MILL OPERATOR [facility] Blood BLOOD SPECIMEN / Unknown Venipuncture / Unknown 05/07/2023 9:35 PM TAPE CONTROL SKIN OR SPAR MILL OPERATOR 05/07/2023 9:41 PM TAPE CONTROL SKIN OR SPAR MILL OPERATOR Adarsh Kapoor MD LAB - CHEMISTRY NAZIA BOWMAN Performing Organization Address City/[facility]/ZIP Co de Phone Number [facility] [address] [place] [phone], [facility] [phone] * LACTIC ACID BLOOD (05/07/2023 9:35 PM TAPE CONTROL SKIN OR SPAR MILL OPERATOR) [facility] Lactic Acid-Stat 1.3 <=2.0 mmol/L 05/07/2023 10:02 PM TAPE CONTROL SKIN OR SPAR MILL OPERATOR [facility] Blood BLOOD SPECIMEN / Unknown Venipuncture / Unknown 05/07/2023 9:35 PM TAPE CONTROL SKIN OR SPAR MILL OPERATOR 05/07/2023 9:41 PM TAPE CONTROL SKIN OR SPAR MILL OPERATOR Adarsh Kapoor MD LAB - CHEMISTRY NAZIA BOWMAN Performing Organization Address [facility] Co de Phone Number [address] [address], [facility] [phone] * EKG 12-LEAD (05/07/2023 8:16 PM TAPE CONTROL SKIN OR SPAR MILL OPERATOR) Only the most recent of2 resultswithin the time period is included. [facility] Ventricular Rate 71 BPM [facility] MUSE Atrial Rate 71 BPM [facility] MUSE P-R Interval 170 ms [facility] MUSE QRS Duration ms 88 ms [facility] MUSE Q-T Interval ms 374 ms [facility] MUSE QTC Calculation (Bezet) 406 ms [facility] MUSE Calculated P [place] 59 degrees SL MUSE Calculated R [place] 43 degrees [facility] MUSE Calculated T [place] -24 degrees [facility] MUSE Interpretation EKG NORMAL SINUS RHYTHM ST ELEVATION IN ANTERIOR LEADS ST & T WAVE ABNORMALITY, CONSIDER INFERIOR ISCHEMIA ABNORMAL ECG WHEN COMPARED WITH ECG OF 07-MAY-2023 18:16, NO SIGNIFICANT CHANGE WAS FOUND Confirmed by ALEJANDRA RANDOLPH MD ([id number]) on 05/09/2023 5:43:02 AM Also confirmed by ALEJANDRA RANDOLPH MD ([id number]), multimedia editor Eleni Bowen ([id number]) on 05/09/2023 12:06:11 PM [facility] MUSE 05/07/2023 8:16 PM TAPE CONTROL SKIN OR SPAR MILL OPERATOR 05/09/2023 12:06 PM TAPE CONTROL SKIN OR SPAR MILL OPERATOR Adarsh Kapoor MD ECG ORDERABLES [facility] KRISTEN * (ABNORMAL) BLOOD GASES GHADA + COOX PANEL (05/07/2023 7:21 PM TAPE CONTROL SKIN OR SPAR MILL OPERATOR) pH Venous 7.37 7.32 - 7.42 pH 05/07/2023 7:38 PM [facility] pO2 Venous 64(H) 35 - 40 mmHg 05/07/2023 7:38 PM [facility] pCO2 Venous 46 40 - 50 mmHg 05/07/2023 7:38 PM [facility] HCO3 Venous 26.6 20 - 30 mmol/L 05/07/2023 7:38 PM [facility] Base Excess Venous 0.9 -2.0 - 2.0 mmol/L 05/07/2023 7:38 PM [facility] Oxyhemoglobin Venous 87.6 % 06/2023 7:38 PM [facility] Deoxyhemoglobin (HHB) Venous % 4.6 % 05/07/2023 7:38 PM [facility] Methemoglobin <0.8 0.0 - 2.0 % 05/07/2023 7:38 PM [facility] Carboxyhemoglobin 7.2(H) 0.0 - 2.0 % 2023 7:38 PM [facility] O2 Content Venous 15.4 Interpret within clinical context ml/dL 05/07/2023 7:38 PM [facility] Hemoglobin by COOX 12.5 12.0 - 17.6 g/dL 05/07/2023 7:38 PM [facility] O2 Saturation Venous 95 >=70 % 06/2023 7:38 PM [facility] FI O2 Mixed Venous 21.0 % 2023 7:38 PM [employer] [facility] Blood BLOOD SPECIMEN / Unknown Venipuncture / Unknown 05/07/2023 7:21 PM [employer] 05/07/2023 7:29 PM [employer] Narrative [facility] - 05/07/2023 7:38 PM TAPE CONTROL SKIN OR SPAR MILL OPERATOR Carboxyhemoglobin Normal Concentration: Non-smokers: 0-2%; Smokers: 0-9%; Toxic: >20% Adarsh Kapoor MD LAB - BLOOD GASES OR DERABLES Performing Organization Address City/[facility]/ZIP Co de Phone Number [address] [address], [place] [phone] * HYDROXYBUTYRATE BETA (05/07/2023 7:21 PM TAPE CONTROL SKIN OR SPAR MILL OPERATOR) Beta-Hydroxybu tyrate <0.50 <0.50 mmol/L 05/07/2023 8:01 PM TAPE CONTROL SKIN OR SPAR MILL OPERATOR [facility] Blood BLOOD SPECIMEN / Unknown Venipuncture / Unknown 05/07/2023 7:21 PM TAPE CONTROL SKIN OR SPAR MILL OPERATOR 05/07/2023 7:35 PM TAPE CONTROL SKIN OR SPAR MILL OPERATOR Adarsh Kapoor MD LAB - CHEMISTRY ORDE RABLES Performing Organization Address [facility] Co de Phone Number [address] [address], [place] [phone] * XR CHEST 2VW (05/07/2023 7:06 PM TAPE CONTROL SKIN OR SPAR MILL OPERATOR) Anatomical Region Laterality Modality Chest Radiographic Trish ging 05/07/2023 8:16 PM TAPE CONTROL SKIN OR SPAR MILL OPERATOR Narrative 05/08/2023 9:37 AM TAPE CONTROL SKIN OR SPAR MILL OPERATOR PROCEDURE: XR CHEST 2VW, DATE/TIME OF EXAM: 05/07/2023 7:06 PM, LOCATION [facility] INDICATION: R53.1: Weakness ADDITIONAL CLINICAL INFORMATION: Ordering Provider Reason For Exam: [facility] COMPARISON: None. FINDINGS/IMPRESSION: Right basilar linear atelectasis. Hazy left lower lung opacities may represent atelectasis or airspace disease. There is no pleural effusion. There is no pneumothorax. The cardiomediastinal silhouette is normal. The visible bony thorax is intact. An 8 mm metallic density opacity superimposes the right upper quadrant. Report dictated by Eloise Blackburn DO (vice president of news). Aide Williamson MD have personally reviewed and interpreted this examination/study. > Interpreting Provider: Aide Hopkins MD on 05/08/2023 9:37 AM Procedure Note Aide Hopkins MD - 05/08/2023 PROCEDURE: XR CHEST 2VW, DATE/TIME OF EXAM: 05/07/2023 7:06 PM, LOCATION [facility] INDICATION: R53.1: Weakness ADDITIONAL CLINICAL INFORMATION: Ordering Provider Reason For Exam: [facility] COMPARISON: None. FINDINGS/IMPRESSION: Right basilar linear atelectasis. Hazy left lower lung opacities may represent atelectasis or airspace disease. There is no pleural effusion. There is no pneumothorax. The cardiomediastinal silhouette is normal.The visible bony thorax is intact. An 8 mm metallic density opacity superimposes the right upper quadrant. Report dictated by Eloise Blackburn DO (vice president of news). Aide Williamson MD have personally reviewed and interpreted this examination/study. > Interpreting Provider: Aide Hopkins MD on 05/08/2023 9:37AM Adarsh Kapoor MD DIAGNOSTIC IMAGING O RDERABLES * BLOOD TYPE VERIFICATION (05/07/2023 6:49 PM TAPE CONTROL SKIN OR SPAR MILL OPERATOR) ABO Rh A POS 05/07/2023 7:2 3 PM TAPE CONTROL SKIN OR SPAR MILL OPERATOR [facility] BLOOD BANK LAB Blood Bank BLOOD SPECIMEN / Unknown Lab Venipuncture / Unknown 05/07/2023 6:49 PM TAPE CONTROL SKIN OR SPAR MILL OPERATOR 05/07/2023 7:01 PM TAPE CONTROL SKIN OR SPAR MILL OPERATOR Pao Early MD LAB - BLOOD BANK ORD ERABLES [facility] BLOOD BANK LAB [address] [place] [address], [facility] [phone] * TSH REFLEX FREE T4 (05/07/2023 6:47 PM TAPE CONTROL SKIN OR SPAR MILL OPERATOR) Pathologist [facility] TSH 1.141 0.350 - 4.940 uIU/mL 05/07/2023 8:12 PM [facility] Blood BLOOD SPECIMEN / Unknown Venipuncture / Unknown 05/07/2023 6:47 PM TAPE CONTROL SKIN OR SPAR MILL OPERATOR 05/07/2023 6:59 PM TAPE CONTROL SKIN OR SPAR MILL OPERATOR Adarsh Kapoor MD LAB - CHEMISTRY ORDE GRACIE [facility] [address] [place] [address], [facility] [phone] * (ABNORMAL) COMPREHENSIVE METABOLIC PANEL (05/07/2023 6:47 PM TAPE CONTROL SKIN OR SPAR MILL OPERATOR) Only the most recent of5 resultswithin the time period is included. Pathologist [facility] BUN 48(H) 7 - 26 mg/dL 05/07/2023 7:25 PM [facility] Creatinine 1.77(H) 0.71 - 1.16 mg/dL 05/07/2023 7:25 PM [facility] Sodium 133(L) 136 - 145 mmol/L 05/07/2023 7:25 PM [facility] Potassium 4.9(H) 3.5 - 4.5 mmol/L 05/07/2023 7:25 PM [facility] Chloride 102 98 - 107 mmol/L 05/07/2023 7:25 PM [facility] CO2 25 22 - 29 mmol/L 05/07/2023 7:25 PM [facility] Glucose 417(H) 70 - 115 mg/dL 05/07/2023 7:25 PM [facility] Calcium 9.0 8.4 - 10.2 mg/dL 05/07/2023 7:25 PM [facility] Protein Total 6.8 6.0 - 8.3 g/dL 05/07/2023 7:25 PM [facility] Albumin 3.4 3.4 - 5.0 g/dL 05/07/2023 7:25 PM [facility] Bilirubin Total 0.4 0.2 - 1.2 mg/dL 05/07/2023 7:25 PM [facility] Alkaline Phosphatase 108 40 - 150 U/L 05/07/2023 7:25 PM [facility] ALT 13 5 - 55 U/L 05/07/2023 7:25 PM [facility] AST 11 5 - 34 U/L 05/07/2023 7:25 PM [facility] Anion Gap 6 6 - 16 05/07/2023 7:25 PM [facility] BUN/Creatinine Ratio 27(H) 7 - 23 05/07/2023 7:25 PM [facility] Osmolality Calculated 306(H) 275 - 295 mOsm/kg 05/07/2023 7:25 PM [facility] Albumin/Globulin Ratio 1.0(L) 1.1 - 2.3 05/07/2023 7:25 PM [facility] eGFR by CKD-EPI 41(L) >=90 mL/min/1.7 3 m2 05/07/2023 7:25 PM [facility] Blood BLOOD SPECIMEN / Unknown Venipuncture / Unknown 05/07/2023 6:47 PM TAPE CONTROL SKIN OR SPAR MILL OPERATOR 05/07/2023 6:59 PM [facility] Adarsh Kapoor MD LAB - CHEMISTRY NAZIA BOWMAN [facility] Organization Address City/State/ZIP Co de Phone Number [facility] [address] [place] [address], [facility] [phone] * PT-INR [facility] (05/07/2023 5:41 PM TAPE CONTROL SKIN OR SPAR MILL OPERATOR) PT 13.0 12.1 - 14.8 Seconds 05/07/2023 6:12 PM [facility] INR 1.0 See Comment 05/07/2023 6:12 PM [facility] Comment:The suggested therap eutic range for standard coumadin (warfarin) therapy is an INR of 2.0-3.0. For high-risk patients (Mechanical Mitral Valve Prosthesis, etc.), the suggested prophylactic therapeutic range is an INR of 2.5-3.5. Blood BLOOD SPECIMEN / Unknown Venipuncture / Unknown 05/07/2023 5:41 PM TAPE CONTROL SKIN OR SPAR MILL OPERATOR 05/07/2023 5:44 PM TAPE CONTROL SKIN OR SPAR MILL OPERATOR Adarsh Kapoor MD LAB - COAGULATION OR DERABLES [facility] [address] [place] [address], [place] [phone] * TYPE + SCREEN PANEL (05/07/2023 5:41 PM TAPE CONTROL SKIN OR SPAR MILL OPERATOR) [facility] Antibody Screen NEG 7:06 PM TAPE CONTROL SKIN OR SPAR MILL OPERATOR [facility] BLOOD BANK LAB ABO Rh A POS 05/07/2023 7:06 PM TAPE CONTROL SKIN OR SPAR MILL OPERATOR [facility] BLOOD BANK LAB Blood Bank BLOOD SPECIMEN / Unknown Venipuncture / Unknown 05/07/2023 5:41 PM TAPE CONTROL SKIN OR SPAR MILL OPERATOR 05/07/2023 6:28 PM TAPE CONTROL SKIN OR SPAR MILL OPERATOR Adarsh Kapoor MD LAB - BLOOD BANK ORD ERABLES Performing Organization Address [facility]/ZIP Co de Phone Number [facility] BLOOD BANK LAB [address] [place] [address], [place] [phone] * (ABNORMAL) CBC W AUTO DIFFERENTIAL (05/07/2023 5:41 PM TAPE CONTROL SKIN OR SPAR MILL OPERATOR) Only the most recent of6 resultswithin the time period is included. [facility] WBC 6.2 4.0 - 10.7 x10E9/L 05/07/2023 5:59 PM [facility] RBC Count 4.16(L) 4.30 - 5.80 x10E12/L 05/07/2023 5:59 PM [facility] Hemoglobin 12.3(L) 13.3 - 17.5 g/dL 05/07/2023 5:59 PM [facility] Hematocrit 36.2(L) 38.7 - 51.1 % 05/07/2023 5:59 PM [facility] MCV 87.0 80.0 - 98.0 fL 05/07/2023 5:59 PM [facility] MCH 29.6 26.7 - 33.6 pg 05/07/2023 5:59 PM [facility] MCHC 34.0 31.7 - 36.3 g/dL 05/07/2023 5:59 PM [facility] RDW-CV 12.5 11.3 - 14.8 % 05/07/2023 5:59 PM [facility] Platelet Count 235 150 - 420 x10E9/L 05/07/2023 5:59 PM [facility] MPV 10.6 7.8 - 11.4 fL 05/07/2023 5:59 PM [facility] Neutrophil % 56.2 41.0 - 74.0 % 05/07/2023 5:59 PM [facility] Lymphocyte % 34.2 17.0 - 47.0 % 05/07/2023 5:59 PM [facility] Monocyte % 5.2 3.0 - 11.0 % 05/07/2023 5:59 PM [facility] Eosinophil % 3.7 0.0 - 7.0 % 05/07/2023 5:59 PM [facility] Basophil % 0.5 0.0 - 1.6 % 05/07/2023 5:59 PM [facility] Immature Granulocytes % 0.2 0.0 - 1.0 % 05/07/2023 5:59 PM [facility] Neutrophil Absolute 3.49 1.60 - 7.50 x10E9/L 05/07/2023 5:59 PM [facility] Lymphocyte Absolute 2.12 1.00 - 4.40 x10E9/L 05/07/2023 5:59 PM [facility] Monocyte Absolute 0.32 0.15 - 1.00 x10E9/L 05/07/2023 5:59 PM [facility] Eosinophil Absolute 0.23 0.00 - 0.60 x10E9/L 05/07/2023 5:59 PM [facility] Basophil Absolute 0.03 0.00 - 0.13 x10E9/L 05/07/2023 5:59 PM [facility] Blood BLOOD SPECIMEN / Unknown Venipuncture / Unknown 05/07/2023 5:41 PM TAPE CONTROL SKIN OR SPAR MILL OPERATOR 05/07/2023 5:48 PM [facility] Adarsh Kapoor MD LAB - HEMATOLOGY ORD ERABLES Performing Organization Address [facility]/ZIP Co de Phone Number [facility] [address] [place] [address], [facility] [phone] * ALCOHOL ETHYL BLOOD (05/07/2023 5:41 PM TAPE CONTROL SKIN OR SPAR MILL OPERATOR) Ethanol (mg/dL) <10 <10 mg/dL 6:19 PM TAPE CONTROL SKIN OR SPAR MILL OPERATOR [facility] Ethanol Calculated (g/dL) <0.010 <=0.010 g/dL 05/07/2023 6:19 PM TAPE CONTROL SKIN OR SPAR MILL OPERATOR [facility] Blood BLOOD SPECIMEN / Unknown Venipuncture / Unknown 05/07/2023 5:41 PM TAPE CONTROL SKIN OR SPAR MILL OPERATOR 05/07/2023 5:47 PM TAPE CONTROL SKIN OR SPAR MILL OPERATOR Narrative [facility] - 05/07/2023 6:19 PM TAPE CONTROL SKIN OR SPAR MILL OPERATOR Ethanol Interp <10: None Detected. Depression of WELT CUTTER: >100 mg/dl Potentially Critical: >250 mg/dl Potentially [...] - CHEMISTRY ORDE GRACIE Performing Organization Address [facility] Co de Phone Number [facility] [address] [place] [address], [facility] [phone] * CT ANGIO BRAIN NECK STROKE (05/07/2023 5:35 PM TAPE CONTROL SKIN OR SPAR MILL OPERATOR) Anatomical Region Laterality Modality Head Computed Tomogra phy 05/07/2023 6:00 PM TAPE CONTROL SKIN OR SPAR MILL OPERATOR Impressions 05/07/2023 6:26 PM TAPE CONTROL SKIN OR SPAR MILL OPERATOR IMPRESSION: 1.No conspicuous flow within the right MANAGER DAIRY P2 and P3 segments with a hypoplastic [...] 05/07/2023 6:26 PM Narrative 05/07/2023 6:26 PM TAPE CONTROL SKIN OR SPAR MILL OPERATOR EXAM: CT ANGIO BRAIN NECK STROKE, DATE/TIME OF EXAM: 05/07/2023 5:40 PM, LOCATION: [facility] HISTORY: R53.1: Weakness ADDITIONAL CLINICAL INFORMATION: Ordering [...] flow within the right posterior cerebral artery (MANAGER DAIRY) P2 and P3 segments with a hypoplastic right P1, 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 Otherwise, no occlusion, hemodynamically significant stenosis, or aneurysm of the major intracranial arteries. Nmcv-va-ntkvqxeo calcific atherosclerosis of the cavernous and clinoid [...] ARTERIES: No occlusion or hemodynamically significant stenosis. 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 Otherwise, no occlusion, hemodynamically significant stenosis, oraneurysm of the major intracranial arteries. Yort-nu-zbilpfle calcific atherosclerosis of the cavernous and clinoid [...] VERTEBRAL ARTERIES: No occlusion or hemodynamically significantstenosis. Gpys-zz-fxmjyeyv short segment stenosis of the left vertebral [...] IMPRESSION: 1.No conspicuous flow within the right MANAGER DAIRY P2 and P3 segments with a hypoplastic [...] * CT BRAIN STROKE (05/07/2023 5:27 PM TAPE CONTROL SKIN OR SPAR MILL OPERATOR) Anatomical Region Laterality Modality Head Computed Tomogra phy 05/07/2023 5:30 PM TAPE CONTROL SKIN OR SPAR MILL OPERATOR Impressions 05/07/2023 6:00 PM TAPE CONTROL SKIN OR SPAR MILL OPERATOR IMPRESSION: 1.No acute intracranial hemorrhage or large [...] 05/07/2023 6:00 PM Narrative 05/07/2023 6:00 PM TAPE CONTROL SKIN OR SPAR MILL OPERATOR EXAM: CT BRAIN STROKE, DATE/TIME OF EXAM: 05/07/2023 5:27 PM, LOCATION: [facility] HISTORY: R53.1: Weakness ADDITIONAL CLINICAL INFORMATION: Ordering [...] Normal soft tissues. Mucosal opacification of left pji-fl-koawwcnsq ethmoid air cells; otherwise, remaining imaged portions of the paranasal sinuses are clear. Opacification of the hypoplastic right mastoid air cells and partial opacification right middle ear cavity, which is consistent with a tympanomastoid effusion. Left mastoid air cells and left middle ear cavity are clear. Jegt-bw-txyssskj calcific atherosclerosis of the carotid siphons. Procedure Note Danika Tijerina MD - 05/07/2023 EXAM: CT BRAIN STROKE, DATE/TIME OF EXAM: 05/07/2023 5:27 PM, LOCATION:[facility] HISTORY: R53.1: Weakness ADDITIONAL CLINICAL INFORMATION: Ordering [...] Normal soft tissues. Mucosal opacification of left otv-kb-lacgcvulflelimlm air cells; otherwise, remaining imaged portions of the paranasal sinuses are clear. Opacification of the hypoplastic right mastoid air cells and partial opacification right middle ear cavity, which is consistent witha tympanomastoid effusion. Left mastoid air cells and left middle earcavity are clear. Tkwj-wx-omwunlii calcific atherosclerosis of the carotid siphons. IMPRESSION: [...] OF CARE (IP) STROKE (05/07/2023 5:27 PM TAPE CONTROL SKIN OR SPAR MILL OPERATOR) INR 1.0 0.9 - 1.2 05/07/2023 5:38 PM [facility] Device [id number] 05/07/2023 5:38 PM [facility] [place] [id number] 05/07/2023 5:38 PM [facility] Blood BLOOD SPECIMEN / Unknown 05/07/2023 5:27 PM TAPE CONTROL SKIN OR SPAR MILL OPERATOR 05/07/2023 5:38 PM TAPE CONTROL SKIN OR SPAR MILL OPERATOR Provider Unknown LAB - POINT OF CARE ORDERABLES [facility] [address] [place] [address], [facility] [phone] * (ABNORMAL) CREATININE - POCT INTERFACED (05/07/2023 5:25 PM TAPE CONTROL SKIN OR SPAR MILL OPERATOR) [facility] Creatinine POCT 1.09 0.30 - 1.30 mg/dL 05/07/2023 5:38 PM [facility] eGFR 74(L) >90 mL/min/1.7 3 m2 05/07/2023 5:38 PM [facility] Blood BLOOD SPECIMEN / Unknown 05/07/2023 5:25 PM TAPE CONTROL SKIN OR SPAR MILL OPERATOR 05/07/2023 5:38 PM TAPE CONTROL SKIN OR SPAR MILL OPERATOR Provider Unknown LAB - POINT OF CARE ORDERABLES Performing Organization Address City/[facility]/ZIP Co de Phone Number [address] [address], [facility] [phone] * EYE EXAM (04/05/2021) Anatomical Region Laterality Modality Other 04/05/2021 Narrative 04/05/2021 Ordered by an unspecified provider. Scanned Document SCANNING ONLY * HEMOGLOBIN A1C - POINT OF CARE (AMB) [facility] (12/09/2020) Only the most recent of14 resultswithin the time period is included. Pathologist [facility] Hemoglobin A1c POCT 8.2 % BLOOD SPECIMEN / Unknown 12/09/2020 aKtey Clifton MD LAB - POINT OF CARE ORDERABLES * IMAGING RADIOLOGY XRAY RESULTS ORDER (10/11/2020) Only the most recent of3 resultswithin the time period is included. Anatomical Region Laterality Modality Other 10/11/2020 Narrative 10/11/2020 Ordered by an unspecified provider. Scanned Document IMAGING * AR DRAIN/INJECT LARGE JOINT/BURSA (09/01/2020 2:13 PM CDT) [...] LAB - POINT OF CARE ORDERABLES * AR DRAIN/INJECT LARGE JOINT/BURSA (09/23/2018 11:29 AM CDT) [...] Mayes MD PROCEDURE/MINOR GARCIA RGICAL ORDERABLES * AR INJ TENDON SHEATH/LIGAMENT/APONEUROSIS (09/23/2018 11:29 AM CDT) [...] virus. REPORT COMMENT: FASTING:NO Test Performed at: [facility] [id number] [place] [address] MARKUS MUELLER DO,MPH Blood BLOOD SPECIMEN / Unknown 06/17/2018 1:51 PM CDT 06/17/2018 1:52 PM CDT Katey Clifton MD LAB - SEROLOGY ORDER CARMEN Performing Organization Address [facility] de Phone Number [employer] [facility] [address] [place] [address] * PSA TOTAL REFLEX TO FREE (04/12/2018 9:44 AM TAPE CONTROL SKIN OR SPAR MILL OPERATOR) PSA 0.3 < OR = 4.0 ng/mL [facility] Comment: The Total PSA value from this assay system is standardized against the equimolar PSA standard. The test result will be approximately 20% higher when compared to the WHO-standardized Total PSA (Siemens assay). Comparison of serial PSA results should be interpreted with this fact in mind. PSA was performed using the [place] Immunoassay method. Values obtained from different assay methods cannot be used interchangeably. PSA levels, regardless of value, should not be interpreted as absolute evidence of the presence or absence of disease. REPORT COMMENT: FASTING:YES Test Performed at: [facility] [id number] [place] [address] MARKUS MUELLER DO,MPH Blood BLOOD SPECIMEN / Unknown 04/12/2018 9:44 AM TAPE CONTROL SKIN OR SPAR MILL OPERATOR 04/12/2018 9:46 AM TAPE CONTROL SKIN OR SPAR MILL OPERATOR Katey Clifton MD LAB - CHEMISTRY ORDE GRACIE Performing Organization Address [facility] Co de Phone Number [employer] [facility] [address] [place] [address] * HEMOGLOBIN A1C - POINT OF CARE (AMB) (11/12/2017 10:13 AM CDT) Only the most recent of2 resultswithin the time period is included. Hemoglobin A1c POCT 9.0 % QC Verified Yes Yes Blood BLOOD SPECIMEN / Unknown 11/12/2017 10:13 AM CDT Katey Clifton MD LAB - POINT OF CARE ORDERABLES * AR POLYSOM 6/>YRS CPAP 4/> PARM (10/13/2017 2:51 PM CDT) Narrative Raman Ellis MD - 10/13/2017 2:51 PM CDT Raman Ellis MD 10/13/2017 2:51 PM Accredited by the [employer] [facility], [address] [place] [id number] Telephone : [phone] Medical Records Patient Name: Chente Bassett : @ Date of study: 10/11/2017 Referring Physician: Katey Clifton MD INTERPRETATION OF POLYSOMNOGRAM TRIAL OF CONTINUOUS POSITIVE AIRWAY THERAPY IMPRESSION: Obstructive Sleep Apnea (AHI=20.0 respiratory events/h; Yvon SaO2=85%; SaO2 below 88%=0.1% of night; Efficiency=88%; Stage R=23%; fgyb=032 kg; [facility] [place] 23 August 2017) Periodic Limb Movement Disorder - 47.3/h on CPAP therapy 11 October 2017 Patient Active Problem List Diagnosis COPD suggested by initial evaluation Controlled type 2 diabetes mellitus without complication, with long-term current use of insulin 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 [address] Telephone : [phone] Medical Records Patient Name: Chente Bassett : 1955 Date of Study: 08/23/2017 Referring Physician: Katey Clifton MD [address] [place] [address] Type of Montage: FULL NIGHT DIAGNOSTIC POLYSOMNOGRAM IMPRESSION: Obstructive Sleep Apnea (AHI=20.0 respiratory events/h; Yvon SaO2=85%; SaO2 below 88%=0.1% of night; Efficiency=88%; Stage R=23%; ezmn=736 kg; [facility] [place] 23 August 2017) Periodic Limb Movement Disorder - provisonal Patient Active Problem List Diagnosis COPD suggested by initial evaluation Controlled type 2 diabetes mellitus without complication, with long-term current use of insulin 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 REPORT COMMENT: FASTING:NO Test Performed at: [facility] [place] [address] [place] [address] MARKUS MUELLER DO,MPH Blood specimen (specimen) BLOOD SPECIMEN / Unknown 04/04/2017 3:04 PM TAPE CONTROL SKIN OR SPAR MILL OPERATOR 04/04/2017 3:04 PM TAPE CONTROL SKIN OR SPAR MILL OPERATOR Katey Clifton MD LAB - CHEMISTRY NAZIA BOWMAN Performing Organization Address [facility] Co de Phone Number [facility] ([facility]) [address] [place] [address] * TSH (04/04/2017 3:04 PM TAPE CONTROL SKIN OR SPAR MILL OPERATOR) Only the most recent of3 resultswithin the time period is included. Pathologist [facility] TSH 2.92 0.40 - 4.50 mIU/L [facility] ([facility]) Comment: REPORT COMMENT: FASTING:NO Test Performed at: [facility] [id number] [place] [address] MARKUS MUELLER DO,MPH Blood specimen (specimen) BLOOD SPECIMEN / Unknown 04/04/2017 3:04 PM TAPE CONTROL SKIN OR SPAR MILL OPERATOR 04/04/2017 3:04 PM TAPE CONTROL SKIN OR SPAR MILL OPERATOR Katey Clifton MD LAB - CHEMISTRY NAZIA BOWMAN Performing Organization Address [facility] de Phone Number [facility] ([facility]) [address] [place] [address] * DRUG SCREEN URINE PAIN MGMT PANEL A (12/14/2016 10:00 PM CDT) [facility] Amphetamines negative [facility] ([facility]) Barbiturates Screen Urine negative [facility]) Benzodiazepine negative [facility] ([facility]) Cocaine Metabolite negative [facility] ([facility]) Marijuana negative [facility]) Methadone negative [facility] ([facility]) Opiates negative [facility] ([facility]) Propoxyphene negative [facility] ([facility]) Comment SEE NOTE [facility] ([facility]) Comment: The [...] 300 Propoxyphene mtb 100 Oxycodone negative [facility] ([facility]) Comment SEE NOTE [facility] ([facility]) Comment: The submitted urine specimen was screened [...] INCORRECT, PLEASE CONTACT CLIENT SERVICES. PHONE NUMBER: [phone] Test Performed at: [facility]/[place] [address] [address] CHACE KING MD,PHD 12/14/2016 10:0 0 PM CDT 12/13/2016 8:39 AM CDT Katey Clifton MD LAB - TOXICOLOGY ORD ERABLES [facility] ([facility]) * XR WRIST LEFT 3VW OR MORE (03/13/2016 11:10 AM TAPE CONTROL SKIN OR SPAR MILL OPERATOR) Anatomical Region Laterality Modality Wrist / Hand Other Impressions 03/13/2016 11:47 AM TAPE CONTROL SKIN OR SPAR MILL OPERATOR IMPRESSION: No acute osseous abnormality. This report was electronically signed by CHUCK PADILLA MD on 03/13/2016 11:47 AM . Narrative 03/13/2016 11:47 AM TAPE CONTROL SKIN OR SPAR MILL OPERATOR Exam: XR WRIST LEFT 3+ VW History: [...] Urine 113 20 - 370 mg/dL [facility] ([facility]) Microalbumin Urine 109.8 mg/dL [facility] ([facility]) Comment: Verified by repeat analysis. Reference Range Not established Urine Albumin/Creatinine Ratio 972(H) <30 mcg/mg creat [facility] ([facility]) Comment: The ADA defines abnormalities in albumin excretion as follows: Category Result (mcg/mg creatinine) Normal <30 Microalbuminuria 30-299 Clinical albuminuria > OR = 300 The ADA recommends that at least two of three specimens collected within a 3-6 month period be abnormal before considering a patient to be within a diagnostic category. REPORT COMMENT: FASTING:YES Test Performed at: [facility] [place] [address] [place] [address] MARKUS MUELLER DO,MPH Urine specimen (specimen) URINE / Unknown 01/01/2016 8:41 AM CDT 01/01/2016 8:43 AM CDT Katey Clifton MD LAB - URINE CHEMISTR Y ORDERABLES [facility] ([facility]) * CULTURE URINE (01/14/2015 1:00 PM TAPE CONTROL SKIN OR SPAR MILL OPERATOR) Urine Culture Routine SEE NOTE [facility] ([facility]) Comment: CULTURE, URINE, ROUTINE MICRO NUMBER: [id number] TEST STATUS: FINAL SPECIMEN SOURCE: URINE SPECIMEN QUALITY: ADEQUATE RESULT: No Growth NO COLLECTION DATE RECEIVED. WE HAVE USED THE DATE THE SPECIMEN WAS RECEIVED BY THIS LABORATORY THE COLLECTION DATE. IF THIS IS INCORRECT, PLEASE CONTACT CLIENT SERVICES. PHONE NUMBER: [phone] Test Performed at: [facility] [address] ESTHER ROBERTS MD Urine specimen (specimen) URINE / Unknown 01/14/2015 1:00 PM TAPE CONTROL SKIN OR SPAR MILL OPERATOR 01/12/2015 3:05 AM TAPE CONTROL SKIN OR SPAR MILL OPERATOR Narrative [facility] ([facility]) - 01/14/2015 1:00 PM TAPE CONTROL SKIN OR SPAR MILL OPERATOR Specimen Type->Urine Katey Clifton MD LAB - MICROBIOLOGY O RDERABOB Performing Organization Address [facility] Co de Phone Number [facility] ([facility]) * CHLAMYDIA+GC PABLO PAP VIAL (01/11/2015 9:30 AM TAPE CONTROL SKIN OR SPAR MILL OPERATOR) Chlamydia trachomatis RNA TMA NOT DETECTED NOT DETECTED [facility] ([facility]) Neisseria gonorrhoeae RNA TMA NOT DETECTED NOT DETECTED [facility] ([facility]) See Note [facility] ([facility]) Comment: This test was performed using the APTIMA COMBO2 Assay ([employer] The analytical performance characteristics of this assay, when used to test SurePath specimens have been determined by [employer]. Test Performed at: [facility] [place] [address] [place] [address] MARKUS MUELLER DO,MPH Urine specimen (specimen) 01/11/2015 9:30 AM TAPE CONTROL SKIN OR SPAR MILL OPERATOR 01/12/2015 3:05 AM TAPE CONTROL SKIN OR SPAR MILL OPERATOR Narrative [facility] ([facility]) - 01/14/2015 1:00 PM TAPE CONTROL SKIN OR SPAR MILL OPERATOR Specimen Type->Urine Katey Clifton MD LAB - MICROBIOLOGY O RDERABOB Performing Organization Address [facility] Co de Phone Number [facility] ([facility]) * URINALYSIS - POINT OF CARE (AMB) U (01/11/2015) Glucose UA neg [facility] Bilirubin UA POCT neg [facility] Ketones UA POCT neg [facility] Specific Cody UA 1.025 [facility] Blood Urine POCT 10 [facility] pH UA 6.0 [facility] Protein UA 15 [facility] Urobilinogen UA 0.2 [facility] Nitrite UA neg [facility] WBC UA 2+ [facility] Urine specimen (specimen) 01/11/2015 Katey Clifton MD LAB - POINT OF CARE ORDERABLES [facility] * LAB HISTORICAL RESULTS-ONBASE (12/11/2014) 12/11/2014 Narrative [facility] - 12/15/2014 9:15 PM CDT Historical Provider LAB - CHEMISTRY O RDERABLES [facility] [address] Care Teams Food And Beverage Attendant Relationship Specialty Start Date End Date Deion Metzger PCP - General 05/10/23 Deino Metzger 05/10/23
--- OUTSIDE RECORDS SUMMARY | 2024-05-12 11:59 | XMS_ITS | Clinical Summary ---
Author Organization [facility] Address [address] [place] [address] Phone Care Team Providers Care Scale Agent Name Role Phone Katey Clifton MD Primary Care Provider [phone] Allergies No known active allergies Medications No known medications Active Problems No known active problems Social History Tobacco Use Types Packs/Day Years Used Date Smoking Tobacco: Never Assessed Sex and Gender Information Value Date Recorded Sex Assigned at Not on file Legal Sex Male 3:03 AM CONTAMINATION CONSULTANT Gender Identity Not on file Sexual Orientation Not on file Last Filed Vital Signs Vital Sign Reading Time Taken Comments Blood Pressure - - Pulse - - Temperature - - Respiratory Rate - - Oxygen Saturation - - Inhaled Oxygen Concentration - - Weight 113.4 kg (250 lb) 01/21/2015 10:46 AM CONTAMINATION CONSULTANT Height 171.5 cm (5' 7.5 ) 01/21/2015 10:46 AM CS T Body Mass Index 38.58 01/21/2015 10:46 AM CONTAMINATION CONSULTANT Plan of Treatment Health Maintenance Due Date [...] DETECTED NON DETECTED 10/06/2016 1:52 PM CDT [facility] HCV RNA QT LOG10 <=0.00 Log10 IU/mL 10/06/2016 1:52 PM CDT [facility] Comment: LOG 10 is not applicable. Sample held in Serology for 1 month. Call Laboratory if further testing is desired. This test was performed using Y[employer]IF[employer] AmpliPrep YENIFER Taq Man Real Time PCR. Blood specimen (specimen) Venipuncture / Unknown 10/04/2016 8:42 AM CDT 10/04/2016 11:03 AM CDT us Vale Hoffman MD IMMUNOLOGY ORDERABLES Final Re sult [facility] [address] [place] [address], [place] from Last 3 Months or Most Recently Relevant to Health Maintenance Insurance MEDICAID [facility] [employer] Care Teams Scale Agent Relationship Specialty Start Date End Date Katey Clifton MD PCP - General Family Medicine 10/04/16
[2024-05-12 14:56] LABS: Hemoglobin A1C 13.4 % (<5.7)
== END 2024-05-12 10:14 | disposition home or self-care (01) ==
PROVIDERS: PCP Family Medicine; Visit Provider Family Medicine
DX: E11.21 Type 2 diabetes mellitus with diabetic nephropathy (principal); Z79.4 Long term (current) use of insulin
CPT/HCPCS: 36415; 83036

== ENCOUNTER 2024-08-15 11:08 | Outpatient (CLI) | payer MEDICARE, SELFPAY ==
--- OUTSIDE RECORDS SUMMARY | 2024-08-15 11:11 | XMS_ITS | Clinical Summary ---
Author Organization [facility] Address [address] [place] [address] Care Team Providers Care Health Care Marketing Specialist Name Role Phone Deion Metzger Primary Care Provider Unavailabl Deion Deleon Unavailable Unavailable Source Comments [facility],non-owned Affiliates and Associated Physician Practices is amultiple site organization consisting of ambulatory clinics and hospital sitesin [place], [place], [place] and [place]. This disclosure is being madepursuant to the Care Everywhere program and may not contain all information available regarding this patient. Last updated 17.[facility] Allergies Active Allergy Reactions Criticality Noted Date Comments Shellfish Allergy Urticaria,Skin Reactions Medium 10/2014 Medications * Be aware that medications may not be up to date on this document. Alwaysverify current medications with the patient. albuterol HFA (VENTOLIN HFA) 108 (90 Base) MCG/ACT inhalerIndicati ons:Chronic obstructive pulmonary disease, unspecified COPD type (HCC) Inhale 2 puffs by mouth every 6 hours as needed 1 Inhaler 11 020 Active montelukast (SINGULAIR) 10 MG tabletIndicatio ns:Cough Take 1 (one) tablet by mouth once daily 30 tablet 3 021 Active Additional Information Patient not taking.Reported on 08/08/2023 fluticasone-jorge luis anterol (BREO ELLIPTA) 100-25 MCG/INH inhalerIndicati ons:Asthma-COPD overlap syndrome (HCC) Inhale 1 (one) puff by mouth once daily Administer at the same time each day. Rinse mouth after using 1 Each 11 021 Active Additional Information Patient not taking.Reported on 08/08/2023 metFORMIN (Glucophage) 500 MG tablet Take 1 (one) tablet by mouth 2 times daily with morning and evening meal Active aspirin (Aspirin) 81 MG chew tablet Take 1 (one) tablet by mouth once daily 100 tablet 3 024 Active atorvastatin (Lipitor) 80 MG tablet Take 1 (one) tablet by mouth at bedtime 30 tablet 3 024 Active clopidogrel (plaVIX) 75 MG tablet Take 1 (one) tablet by mouth once daily 20 tablet Active insulin glargine (Lantus/Semglee ) 100 units/mL pen Inject 20 (twenty) Units subcutaneously every morning 300 mL 5 Active Additional Information Patient taking differently: 30 UnitsSubcutaneousEVERY 24 HOURS, Reported on 08/08/2023 amLODIPine (Norvasc) 10 MG tabletIndicatio ns:Essential (primary) hypertension TAKE 1 TABLET BY MOUTH EVERY DAY 90 tablet 3 024 Active Active Problems Problem Noted Date Diagnosed [...] evaluation 04/25/2017 Controlled type 2 diabetes m viniciusitus without complication, with long-term current use of insulin 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 12/12/2016 Lumbar spinal stenosis 09/11/2016 De Quervain's tenosynovitis, left 03/13/2016 Chronic hepatitis C without hepatic coma 11/09/2 015 Chronic back pain 08/17/2014 Other male erectile dysfunction 08/01/2014 Essential hypertension 08/01/2014 Hyperlipidemia 08/01/2014 Resolved Problems Problem Noted Date Diagnosed Date Resolved Date Hypersomnia due to medical condition 08/19/2017 09/11/2017 Immunizations Immunization Administration Dates Next Due Sarah Bethmatty Rafael primary monoval ent 12+ yr 0.3mL [...] Recorded Patient Health Questionnaire-2 Score 0 05/08/2023 [facility] of Occupat ional Health - Occupational Stress [...] place to sleep or slept in a detention (including now)? No 05/08/2023 Sex and Gender Information Value Date Recorded Sex Assigned at Not on file Legal Sex Male 5:00 AM CLAMPER Gender Identity Not on file Sexual Orientation Not on file Last Filed Vital Signs Vital Sign Reading Time Taken Comments Blood Pressure 146/84 08/08/2023 2:04 PM CDT Pulse 87 08/08/2023 2:04 PM CDT Temperature 36.7 C (98 F) 05/09/2023 8:00 AM CLAMPER Respiratory Rate 14 08/08/2023 2:04 PM CDT Oxygen Saturation 99% 05/09/2023 8:00 AM CLAMPER Inhaled Oxygen Concentration - - Weight 103.9 kg (229 lb) 08/08/2023 2:04 PM CDT Height 171.5 cm (5' 7.5) 08/08/2023 2:04 PM CD T Body Mass Index 35.34 08/08/2023 2:04 PM [...] 06/2023, 12/09/2020, Additional history exists COVID-19 VACCINE ( season) 2023 02/02/2021, 07/18/2020, 06/23/2020 DEPRESSION SCREENING 03/05/2024 05/07/2023, 01/26/20 20 DIABETES - URINE PROTEIN SCREENING 03/05/2024 01/01/2016, 06/08/2014 MEDICARE AWV CALENDAR YEAR 2024 01/26/2020 COLONOSCOPY - COLON CA SCREENING 03/31/2024 03/31/2014 (Done Outside Per Patient) Colorectal Cancer Screening 03/31/2024 DIABETES-SERUM CREATININE 05/08/20242023, 05/07/2023, 05/07/2023, Additional history exists INFLUENZA VACCINE (Season Ended) 2024 12/09/2020, 12/06/2019, 12/30/2018, Additional history exists DTAP/TDAP/TD VACCINES (2 - [...] complete this topic MENINGOCOCCAL (Group B) VACCINE SHARED DECISION-MAKING Aged Out No longer eligible based on patient's age to complete this topic MENINGOCOCCAL GROUPS A/C/Y/W VACCINE Aged Out No longer eligible based on patient's age to complete this topic Medical Devices Implanted Type Area Returned Goods Receiving Clerk Device Identifier Shelf Expiration Date Model / Serial / Lot Bullet. Ruq Abdomen Description:Bullet. RUQ Abdo men Procedures Procedure Name Priority Date/Time Associated Diagnosis Comments BASIC METABOLIC PANEL (CALCIUM TOTAL) Routine 05/09/2023 12:01 AM CLAMPER HEMOGLOBIN A1C Routine 05/08/2023 8:23 AM CLAMPER EYE EXAM 04/05/2021 MICROALB/CREAT RATIO URINE RANDOM PANEL Routine 01/01/2016 8:41 AM CDT from Last 3 Months or Most Recently Relevant to Health Maintenance Results * (ABNORMAL) BASIC METABOLIC PANEL (CALCIUM TOTAL) (05/09/2023 12:01 AM CLAMPER) BUN 33(H) 7 - 26 mg/dL 05/09/2023 12:50 AM CLAMPER [facility] Creatinine 1.43(H) 0.71 - 1.16 mg/dL 05/09/2023 12:50 AM CLAMPER [facility] Sodium 141 136 - 145 mmol/L 05/09/2023 12:50 AM [facility] Potassium 3.9 3.5 - 4.5 mmol/L 05/09/2023 12:50 AM [facility] Chloride 110(H) 98 - 107 mmol/L 05/09/2023 12:50 AM [facility] CO2 23 22 - 29 mmol/L 05/09/2023 12:50 AM [facility] Glucose 175(H) 70 - 115 mg/dL 05/09/2023 12:50 AM [facility] Calcium 7.8(L) 8.4 - 10.2 mg/dL 05/09/2023 12:50 AM [facility] Anion Gap 8 6 - 16 05/09/2023 12:50 AM [facility] BUN/Creatinine Ratio 23 7 - 23 05/09/2023 12:50 AM [facility] Osmolality Calculated 304(H) 275 - 295 mOsm/kg 05/09/2023 12:50 AM [facility] eGFR by CKD-EPI 53(L) >=90 mL/min/1.7 3 m2 05/09/2023 12:50 AM [facility] Blood BLOOD SPECIMEN / Unknown Venipuncture / Unknown 05/09/2023 12:01 AM [facility] 05/09/2023 12:21 AM [facility] us Adarsh Kapoor MD LAB - CHEMISTRY ORDERABLES Fin al Result Performing Organization Address City/State/[facility] Co de Phone Number [facility] [address] [place] [address], [facility] [phone] * (ABNORMAL) HEMOGLOBIN A1C (05/08/2023 8:23 AM [facility]) Hemoglobin A1c 13.5(H) <=5.6 % 05/08/2023 9:23 AM [facility] Estimated Average Glucose 341 mg/dL 05/08/2023 9:23 AM [facility] Comment: HbA1c Interpretation: Normal : < 5.7% Pre-diabetes: 5.7-6.4% Diabetes: Equal to or greater than 6.5% Test results diagnostic of diabetes should be repeated for confirmation. Treatment target values recommended by ADA and other clinical organizations should be used to evaluate metabolic control in patients. Reference: [place] Diabetes Association, Standards of Care in Diabetes -2020 In patients 70 years and older consider HbA1c target range of 7.0-7.5% (Reference: Alli Lopez et al. NATANDA. 2012) The Sebia assay for the measurement of HbA1c is a National Glycohemoglobin Standardization Program (NGSP) certified method. Blood BLOOD SPECIMEN / Unknown Venipuncture / Unknown 05/08/2023 8:23 AM CLAMPER 05/08/2023 8:30 AM CLAMPER Aki Vivar MD LAB - CHEMISTRY ORDERABLES F inal Result [facility] [address] [place] [address], [facility] [phone] * EYE EXAM (04/05/2021) Anatomical Region Laterality Modality Other 04/05/2021 Narrative 04/05/2021 Ordered by an unspecified provider. us Scanned Document SCANNING ONLY Final Result * (ABNORMAL) MICROALB/CREAT RATIO URINE RANDOM PANEL (01/01/2016 8:41 AM CDT) Creatinine Urine 113 20 - 370 mg/dL [facility] ([facility]) Microalbumin Urine 109.8 mg/dL [facility] ([facility]) Comment: Verified by repeat analysis. Reference Range Not established Urine Albumin/Creatinine Ratio 972(H) <30 mcg/mg creat [facility] ([facility]) Comment: The ADA defines abnormalities in albumin excretion as follows: Category Result (mcg/mg creatinine) Normal <30 Microalbuminuria 30-299 Clinical albuminuria > OR = 300 The ADA recommends that at least two of three specimens collected within a 3-6 month period be abnormal before considering a patient to be within a diagnostic category. REPORT COMMENT: FASTING:YES Test Performed at: [facility] [id number] [place] [address] MARKUS MUELLER DO,MPH Urine specimen (specimen) URINE / Unknown 01/01/2016 8:41 AM CDT 01/01/2016 8:43 AM CDT us Katey Clifton MD LAB - URINE CHEMISTRY ORDERABLE S Final Result [facility]) [id number] from Last 3 Months or Most Recently Relevant to Health Maintenance Insurance [facility] MANAGED MEDICARE ADV [facility] MANAGED MEDICARE ADV [facility] MANAGED MEDICARE ADV Advance Directives * Full Code (Latest Code Status on File) Date Activated Date Inactivated Comments 05/07/2023 8:17 PM 05/09/2023 6:55 PM Care Teams Health Care Marketing Specialist Relationship Specialty Start Date End Date Deion Metzger PCP - General 05/10/23 Deion Metzger 05/10/23
--- OUTSIDE RECORDS SUMMARY | 2024-08-15 11:11 | XMS_ITS | Encounter Summary ---
Author Organization [facility] Address [address] [place] [address] Care Team Providers Care Protective Signal Installer Helper Name Role Phone Katey Clifton MD Primary Care Provider [phone] Katey Clifton MD Primary Care Provider [phone] Deion Metzger Primary Care Provider Unavailabl e Katey Clifton MD Unavailable [phone] Deion Metzger Unavailable Unavailable Reason for Visit * Reason Onset Date Comments Medication Issue 08/24/2020 Encounter Details Date Type Department Care Team (Late st Contact Info) Description 08/24/2020 Telephone [facility] [address] [place], [place] [id number] Katey Clifton MD [address] [facility] [address] [place] [address] Medication Issue Social History Tobacco Use Types Packs/Day Years Used Date Smoking Tobacco: Former Cigarettes Q uit: 04/29/2015 Smokeless Tobacco: Never Alcohol Use Standard Drinks/Week Comments No 0 (1 standard drink = 0.6 oz pur e alcohol) Sex and Gender Information Value Date Recorded Sex Assigned at Not on file Legal Sex Male 5:00 AM P D DRIVER Gender Identity Not on file Sexual Orientation [...] Patient Call Back number: Ms. Cindy Alvarado [phone] documented in this encounter Plan of Treatment Not on file documented as of this encounter Visit Diagnoses Not on filedocumented in this encounter Additional Health Concerns Infection Onset Date Last Indicated Resolved Time COVID-19 Under Investigation 05/07/2023 05/08/2023 05/08/2023 7:51 AM P D DRIVER documented as of this encounter Care Teams Protective Signal Installer Helper Relationship Specialty Start Date End Date Katey Clifton MD [address] [facility] [place] [id number] PCP - General 05/30/22 05/06/23 Katey Clifton MD [address] [facility] [place] [id number] PCP - General Family Medicine 05/07/23 05/09/23 Deion Metzger PCP - General 05/10/23 Katey Clifton MD [address] [address] 05/07/23 05/09/23 Deion Metzger 05/10/23 documented as of this encounter
--- OUTSIDE RECORDS SUMMARY | 2024-08-15 11:11 | XMS_ITS | Clinical Summary ---
Author Organization [facility] Address [address] [place] [address] Phone Care Team Providers Care Flyer Maker Name Role Phone Katey Clifton MD Primary Care Provider [phone] Allergies No known active allergies Medications No known medications Active Problems No known active problems Social History Tobacco Use Types Packs/Day Years Used Date Smoking Tobacco: Never Assessed Sex and Gender Information Value Date Recorded Sex Assigned at Not on file Legal Sex Male 3:03 AM GUEST SERVICE REPRESENTATIVE Gender Identity Not on file Sexual Orientation Not on file Last Filed Vital Signs Vital Sign Reading Time Taken Comments Blood Pressure - - Pulse - - Temperature - - Respiratory Rate - - Oxygen Saturation - - Inhaled Oxygen Concentration - - Weight 113.4 kg (250 lb) 01/21/2015 10:46 AM GUEST SERVICE REPRESENTATIVE Height 171.5 cm (5' 7.5) 01/21/2015 10:46 AM CS T Body Mass Index 38.58 01/21/2015 10:46 AM GUEST SERVICE REPRESENTATIVE Plan of Treatment Health Maintenance Due Date Last Done Comments TdaP Immunization 1955 Cologuard 01/10/2000 Colonoscopy 01/10/2000 Colorectal Cancer Screening 01/10/2000 Immunochemical Fecal Occult Blood 01/10/2000 Pneumococcal Immunization (50+ years) (1 of 1 - PCV) 2005 Zoster Immunization (1 of 2) 2005 SARS-COV-2 Immunization (1 - 2023- season) 2023 Influenza Immunization (Season Ended) 2024 Respiratory Syncytial Virus (RSV) Immunization (Adult) (1 - 1-dose 75+ series) 2030 Hepatitis C Virus (HCV) Screening Completed 10/04/2016, 02/17/2015, 02/17/2015, Additional history exists Hepatitis B Immunization Aged Out No longer eligible based on patient's age to complete this topic Human Papillomavirus (HPV) Immunization Aged Out No longer eligible based [...] DETECTED NON DETECTED 10/06/2016 1:52 PM CDT [facility] HCV RNA QT LOG10 <=0.00 Log10 IU/mL 10/06/2016 1:52 PM CDT [facility] Comment: LOG 10 is not applicable. Sample held in Serology for 1 month. Call Laboratory if further testing is desired. This test was performed using Y[employer]IFER AmpliPrep YENIFER Taq Man Real Time PCR. Blood specimen (specimen) Venipuncture / Unknown 10/04/2016 8:42 AM CDT 10/04/2016 11:03 AM CDT us Vale Hoffman MD IMMUNOLOGY ORDERABLES Final Re sult [facility] [address] [place] [address], [place] from Last 3 Months or Most Recently Relevant to Health Maintenance Insurance MEDICAID [facility] Care Teams Flyer Maker Relationship Specialty Start Date End Date Katey Clifton MD PCP - General Family Medicine 10/04/16
[2024-08-15 12:39] LABS: Albumin Level 3.9 g/dL (3.5-5.1); Anion Gap 8 mmol/L (4-12); Blood Urea Nitrogen 35 mg/dL (9-20); Calcium 8.8 mg/dL (8.4-10.2); Carbon Dioxide 21 mmol/L (22-30); Chloride 112 mmol/L (98-107); Estimated Glomerular Filt Rate 40; Glucose 301 mg/dL (65-110); Phosphorus 3.6 mg/dL (2.5-4.5); Potassium 4.9 mmol/L (3.4-5.0); Sodium 141 mmol/L (137-145)
[2024-08-15 12:46] LABS: Parathyroid Intact 120.2 pg/mL (14.5-75.2)
[2024-08-15 13:44] LABS: Creatinine Urine 99.4 mg/dL; Total Protein Urine Random 33 mg/dL; Ur Ttl Prot Creatinine Ratio 0.33 mg/mg (0-0.20)
== END 2024-08-15 11:09 | disposition home or self-care (01) ==
LOC: ANHGOSHLAB 11:09
PROVIDERS: PCP Family Medicine; Visit Provider Internal Medicine Nephrology
DX: N25.81 Secondary hyperparathyroidism of renal origin (principal); I12.9 Hypertensive chronic kidney disease with stage 1 through stage 4 chronic kidney disease, or unspecified chronic kidney disease; N18.32 Chronic kidney disease, stage 3b; E11.22 Type 2 diabetes mellitus with diabetic chronic kidney disease; E55.9 Vitamin D deficiency, unspecified
CPT/HCPCS: 36415; 80069; 82306; 82570; 83970; 84156

== ENCOUNTER 2024-12-12 12:38 | Outpatient (CLI) | payer MEDICARE, SELFPAY ==
[2024-12-12 19:17] LABS: Alanine Aminotransferase 18 U/L (6-50); Albumin Level 4.1 g/dL (3.5-5.1); Alkaline Phosphatase 109 U/L (38-126); Anion Gap 5 mmol/L (4-12); Aspartate Amino Transferase 44 U/L (17-59); Bilirubin,Total 0.5 mg/dL (0.2-1.3); Blood Urea Nitrogen 36 mg/dL (9-20); Calcium 9.3 mg/dL (8.4-10.2); Carbon Dioxide 25 mmol/L (22-30); Chloride 110 mmol/L (98-107); Cholesterol 127 mg/dL (0-200); Estimated Glomerular Filt Rate 39; Glucose 181 mg/dL (65-110); HDL Direct 34 mg/dL; Potassium 5.3 mmol/L (3.4-5.0); Sodium 140 mmol/L (137-145); Total Protein 7.4 g/dL (6.3-8.2); Triglycerides 110 mg/dL (<150)
[2024-12-12 20:01] LABS: Hemoglobin A1C 8.3 % (<5.7)
[2024-12-12 20:17] LABS: Total Protein Urine Random 33 mg/dL; Ur Ttl Prot Creatinine Ratio 0.34 mg/mg (0-0.20)
== END 2024-12-12 12:39 | disposition home or self-care (01) ==
LOC: ANHGOSHLAB 12:39
PROVIDERS: PCP Family Medicine; Visit Provider Internal Medicine Nephrology
DX: E11.40 Type 2 diabetes mellitus with diabetic neuropathy, unspecified (principal); E11.21 Type 2 diabetes mellitus with diabetic nephropathy; I12.9 Hypertensive chronic kidney disease with stage 1 through stage 4 chronic kidney disease, or unspecified chronic kidney disease; Z79.4 Long term (current) use of insulin; N18.30 Chronic kidney disease, stage 3 unspecified; N18.32 Chronic kidney disease, stage 3b; E11.22 Type 2 diabetes mellitus with diabetic chronic kidney disease
CPT/HCPCS: 36415; 80053; 80061; 80069; 82570; 83036; 84156

== ENCOUNTER 2024-12-22 12:32 | Emergency (ER) | payer MEDICARE, SELFPAY ==
--- NOTE | ~2024-12-22 | XR_ITS ---
EXAMINATION: XR hip LT 2V w AP pelvis DATE: 12/22/2024 13:28 INDICATION: Left hip pain. No injury TECHNIQUE: 3 images of the left hip were obtained. COMPARISON: Left hip X-ray 06/29/2022 FINDINGS: There are 2.5 x 9.2 cm irregular radiopaque opacity projecting over the right lesser trochanter. The finding is new as compared to the study from 2022. The finding may represent heterotopic bone formation. Other etiologies are possible. No fracture identified. No dislocation. Mild degenerative change in the hips and pubic symphysis. Vascular calcifications are noted. There is bowel gas and stool projecting over the pelvis which limits evaluation. No sclerotic bone lesions identified. IMPRESSION: 1. No fracture. 2. There are 2.5 x 9.2 cm irregular radiopaque opacity projecting over the right lesser trochanter. The finding is new as compared to the study from 2022. The finding may represent heterotopic bone formation. Other etiologies are possible. Consider a CT or MRI is recommended for further assessment. Correlate clinically. Reviewed, dictated and finalized at location Q. IMPRESSION: 1. No fracture. 2. There are 2.5 x 9.2 cm irregular radiopaque opacity projecting over the righ t lesser trochanter. The finding is new as compared to the study from 2022. The finding may represent heterotopic bone formation. Other etiologies are possibl e. Consider a CT or MRI is recommended for further assessment. Correlate clinic ally.
[2024-12-22 12:33] VITALS: BP 159/69; PULSE 94; RESP 15; TEMP 36.4; O2SAT 99
--- NOTE | 2024-12-22 13:48 | ED.LOWEXIN ---
HPI - Extremity Injury (Lower) General Chief Complaint: Extremity Injury, Lower Stated Complaint: left hip pain Time Seen by Provider: 12/22/24 13:25 Source: patient Mode of arrival: ambulatory Limitations: no limitations History of Present Illness HPI Narrative: Patient is a 69 y/o male who presents to ED with report of left hip pain. Patient reports having pain for the past 3 days. Denies any fall or injury. Denies radiation down his left lower extremity. Denies numbness or tingling. Denies back or groin pain. Denies urinary complaints. He is able to ambulate. States he was told several years ago he would need a hip replacement. Has been taken Tylenol once without improvement. Related Data Home Medications ?Medication ?Instructions ?Recorded ?Confirmed ?Last Taken ?Type amlodipine 10 mg tablet mg 02/28/24 09/15/24 Unknown History aspirin 81 mg chewable tablet 02/28/24 09/15/24 Unknown History Allergies Allergy/AdvReac Type Severity Reaction Status Date / Time shrimp Allergy Rash Verified 12/22/24 14:02 Review of Systems Review of Systems: All systems reviewed & are unremarkable except as noted in HPI. All systems reviewed & are unremarkable except as noted in HPI and below PMFSH Past Medical History Medical History DM (diabetes mellitus) Hypertension Hypercholesteremia Surgical History Surgical History History of cholecystectomy History of tonsillectomy Social History Social History Social History: Caffeine-coffee Smoking packs per day: 0.5 Smoking cigarettes per day: 10.0 Years smoked: 42 Smoking pack-years: 21.00 Smoking status: Current every day smoker Tobacco type: cigarettes Alcohol intake: current Alcohol use details: rarely Substance use: never Substance use type: does not use Do You Feel Safe in your Home?: Yes Lack of Transportation: No Lack of Food: Sometimes True Current Housing: I Do Not Have Housing Concerned About Future Housing: No Difficulty Paying Gas/Electric Bills: No Difficulty Paying for Meds: Decline to Answer Currently Unemployed: Decline to Answer Education: Trade/Vocational Certificate Difficulty w/ Childcare or Family Care: No Living arrangements: with family Gender identity (if verbalized by the patient): Male Sexual Orientation (if Verbalized by the Patient): Straight or Heterosexual Spiritual care concerns: No Exam Narrative: GENERAL: Elderly, obese with BMI of 37.3, non-toxic, in no acute distress. HEAD: Normocephalic, atraumatic. RESPIRATORY: Airway patent, respirations nonlabored. CARDIOVASCULAR: Regular rate and rhythm MUSCULOSKELETAL: Moves all extremities. No gross deformities. Mild tenderness to palpation over left lateral hip joint. Sensation intact. SKIN: Warm, dry, normal color. NEURO: A&O X3. Speech clear. Cranial nerves II-XII grossly intact. Steady gait. No ataxic movements. PSYCHIATRIC: Appropriate mood and affect. Normal interaction. Course Vital Signs Vital signs: Vital Signs Temperature 97.5 F L 12/22/24 12:33 Pulse Rate 94 12/22/24 12:33 Respiratory Rate 15 12/22/24 12:33 Blood Pressure 159/69 H 12/22/24 12:33 Pulse Oximetry 99 12/22/24 12:33 Oxygen Delivery Room Air 12/22/24 12:33 Temperature 97.5 F L 12/22/24 12:33 Pulse Rate 89 12/22/24 14:18 Respiratory Rate 17 12/22/24 14:18 Blood Pressure 144/89 H 12/22/24 14:18 Pulse Oximetry 100 12/22/24 14:18 Oxygen Delivery Room Air 12/22/24 12:33 MDM - Extremity Injury (Lower) MDM Narrative Medical decision making narrative: Patient?s injury is consistent with musculoskeletal etiology. No signs of neurologic or vascular compromise on physical examination. Compartments are soft without signs of compartment syndrome. XR without evidence of acute fracture. Does show possible opacity on right greater trochanter. Reports this is new from 2022, however X-ray imaging from February of last year did not show evidence of this. Advised patient to follow-up with PCP for this. Will also refer to Orthopedics. Discussed rice therapy, continued management of pain. Given 1 dose of [place] here. Patient is felt to be stable for discharge home and further outpatient management and treatment. Given return precautions. Discharged in stable condition. Medical Records Attestation: I reviewed the patient's medical records. Imaging Data Attestation: I personally reviewed and interpreted this imaging study as follows: Radiologist's impression: ITS Impressions Hip/Pelvis X-Ray 12/22/24 13:30 IMPRESSION: 1. No fracture. 2. There are 2.5 x 9.2 cm irregular radiopaque opacity projecting over the right lesser trochanter. The finding is new as compared to the study from 2022. The finding may represent heterotopic bone formation. Other etiologies are possible. Consider a CT or MRI is recommended for further assessment. Correlate clinically. Discharge Plan Discharge Clinical Impression: Strain of left hip Qualifiers: Encounter type: initial encounter Qualified Code(s): S76.012A - Strain of muscle, fascia and tendon of left hip, initial encounter Patient Disposition: Home Condition: Stable Instructions: Antibiotic Form, Hip Sprain (ED), P.R.I.C.E. Treatment (ED) Additional Instructions: Continue Tylenol and Ibuprofen as needed for pain. You may use ice/heat, voltaren gel to area of pain. Keep leg elevated whenever possible. Follow-up with your primary care doctor and/or Orthopedics for further evaluation. Return to the ED if you experience worsening or severe pain, fall or injury, numbness in groin or legs, going to the bathroom without meaning to, or any other symptoms of concern. Patient Language: Greenlandic Prescriptions: New diclofenac sodium [Voltaren Arthritis Pain] 1 % gel 2 g topical QID Qty: 50 0RF Rx Instructions: apply to single elbow, wrist or hand; for hand includes palm/fingers/back of hand No Action amlodipine 10 mg tablet aspirin 81 mg tablet,chewable lisinopril-hydrochlorothiazide 20-12.5 mg tablet 2 tablet PO DAILY Qty: 180 3RF metformin 500 mg tablet extended release 24 hr 500 mg PO BID Qty: 180 3RF (DME) blood-glucose sensor Device See Rx Instructions .Route Qty: 1 0RF Rx Instructions: Check blood sugar 4 times daily cyclobenzaprine 10 mg tablet 10 mg PO TID PRN (Reason: muscle spasm) Qty: 30 1RF (DME) pen needle, diabetic [1st Tier Unifine Pentips] 32 gauge x 5/32 needle See Rx Instructions .Route Qty: 100 3RF Rx Instructions: Check blood sugar 4 times daily (DME) lancets 32 gauge misc See Rx Instructions .Route Qty: 100 3RF Rx Instructions: Check blood sugar 4 times daily alcohol swabs [Alcohol Wipes] Pads, Medicated 1 pad topical QID Qty: 200 5RF insulin glargine [Lantus Solostar U-100 Insulin] 100 unit/mL (3 mL) insulin pen 40 unit subcut QAM Qty: 15 3RF atorvastatin [Lipitor] 20 mg tablet 20 mg PO QHS Qty: 90 1RF triamcinolone acetonide 0.1 % cream 1 applic topical TID Qty: 30 0RF hydrocodone-acetaminophen 7.5-325 mg tablet 1 tablet PO Q8H PRN (Reason: pain) Qty: 60 0RF sildenafil [Viagra] 100 mg tablet 100 mg PO DAILY PRN (Reason: sexual activity) Qty: 30 5RF Rx Instructions: administer 30 minutes to 4 hours before activity (DME) [employer] Ophelia 3 Plus Sensor Device See Rx Instructions .ROUTE .COMPLEX Qty: 6 1RF Dose Instruction: USE TO CHECK BLOOD SUGARS Rx Instructions: USE TO CHECK BLOOD SUGARS Follow-up/Referrals: Geovany Pena MD [Physician, Orthopedics] Referral Note: ORTHOPEDICS Juan Pablo Deluna MD [Primary Care Provider, Family Practice] Time of Disposition: 13:53
[2024-12-22] MEDS: HYDROcodone/acetaminophen (*CRX) 5-325 MG TABLET 1 TAB PO (14:03)
[2024-12-22 14:18] VITALS: BP 144/89; PULSE 89; RESP 17; O2SAT 100
== END 2024-12-22 14:20 | disposition home or self-care (01) ==
LOC: ANHED 14:06
PROVIDERS: Emergency Provider Physician Assistant; PCP Family Medicine
DX: S76.012A Strain of muscle, fascia and tendon of left hip, initial encounter (principal); F17.210 Nicotine dependence, cigarettes, uncomplicated; E11.9 Type 2 diabetes mellitus without complications; I10 Essential (primary) hypertension; E78.5 Hyperlipidemia, unspecified; X58.XXXA Exposure to other specified factors, initial encounter
CPT/HCPCS: 73502; 99283; A9270

== ENCOUNTER 2025-02-12 10:54 | Outpatient (CLI) | payer MEDICARE, SELFPAY ==
--- NOTE | ~2025-02-12 | CT_ITS ---
EXAM/PROCEDURE: CT hip RT wo con HISTORY: R93.7 - Abnormal findings on diagnostic imaging of other ... COMPARISON: Right hip x-rays from December 22 TECHNIQUE: Right hip CT FINDINGS: Bulky calcification has developed in the area of the iliopsoas muscle extending to the insertion on the lesser trochanter. Irregular lucency adjacent to the lesser trochanter could represent remote fracture of this bulky calcification. The right femur itself appears intact. Moderately severe osteoarthritic degenerative changes in the right hip also noted with joint space narrowing, sclerotic articulating margins and subchondral cystic changes in the tectum. No large joint effusion. No large mass. No aggressive bony lesions seen. IMPRESSION: 1. 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 Heterotopic ossification could have a similar appearance. See also, as above. 2. Moderate to severe osteoarthritic appearing degenerative changes in the right hip. Reviewed, dictated and finalized at location A. [facility]PER[facility] IMPRESSION: 1. Development of bulky calcification in the region of the psoas probably assoc iated with myositis ossificans. Heterotopic ossification could have a similar a ppearance. See also, as above. 2. Moderate to severe osteoarthritic appearing degenerative changes in the righ t hip.
== END 2025-02-12 10:55 | disposition home or self-care (01) ==
PROVIDERS: PCP Family Medicine; Visit Provider Student in an Organized Health Care Education/Training Program
DX: R93.7 Abnormal findings on diagnostic imaging of other parts of musculoskeletal system (principal); M16.11 Unilateral primary osteoarthritis, right hip; M61.48 Other calcification of muscle, other site
CPT/HCPCS: 73700